=== PATIENT | female | born 1985 | race Caucasian/White ===

== ENCOUNTER 2017-01-23 19:55 | Emergency (ER) | payer BC ==
[2017-01-23 20:13] VITALS: BP 141/82
[2017-01-23] MEDS ORDERED: Meclizine TAB* 12.5 MG PO ONE (20:37)
[2017-01-23] MEDS ORDERED: Amoxicillin/Clavulanate TAB* 875 MG PO ONE (20:39)
[2017-01-23] MEDS ORDERED: Acetaminophen TAB* 325 MG PO ONE (20:40)
--- NOTE | 2017-01-23 22:47 | UC ---
Mik Tolbert Erika, scribed for Genny Ravi MD on 01/23/17 at 2035 . Dizzy HPI HPI Summary: Patient is a 31-year-old female presenting to [facility] with a CC of dizziness. Patient reports that on 01/20/2017, she developed a fever, nasal congestion, a cough, and a slightly sore throat. Patient also reports she has a Hx chronic ear infections, and has been using ciprodex drops in her left ear for the past few days because it felt itchy. She denies ear pain. Patient reports that tonight around 19:00, she developed dizziness, which she describes as feeling like she is underwater. Dizziness is aggravated by standing. Pt denies chest pain. Patient states she did not have the flu shot this year. She had mastoid surgery at age 4, and is followed by Dr. Decker for her frequent ear infections. Patient takes Prozac daily. LNMP early January 2017. FHx lupus, CAD. Patient smokes. - History Of Current Complaint Chief Complaint: UCDizziness Stated Complaint: DIZZY, SOB, COUGH Time Seen by Provider: 01/23/17 20:18 Hx Obtained From: Patient Hx Last Menstrual Period: January Onset/Duration: Gradual Onset, Lasting Hours, Still Present Timing: Constant Severity Currently: Moderate Pain Intensity: 0 Pain Scale Used: 0-10 Numeric Character: Dizzy Aggravating Factor(s): Supine To Erect Alleviating Factor(s): Nothing Associated Signs And Symptoms: Positive: Negative. Negative: Vomiting, Tinnitus , Chest Pain Related History: Similar Episode/Dx as - OM - Allergies/Home Medications Allergies/Adverse Reactions: Allergies Allergy/AdvReac Type Severity Reaction Status Date / Time No Known Allergies Allergy Verified 10/21/16 09:11 PMH/Surg Hx/FS Hx/Imm Hx Endocrine History Of: Denies: Diabetes, Thyroid Disease Cardiovascular History Of: Denies: Cardiac Disorders, Hypertension Respiratory History Of: Reports: Asthma - for a few years now; occasionally uses an inhaler Denies: COPD GI/ History Of: Denies: Ulcer Psychological History Of: Reports: Depression - Surgical History Surgical History: Yes Surgery Procedure, Year, and Place: L ear(mastoid); ; TONSILECTOMY - Family History Known Family History: Positive: Cardiac Disease, Other - lupus - Social History Alcohol Use: None Substance Use Type: None Smoking Status (MU): Heavy Every Day Tobacco Smoker Type: Cigarettes Amount Used/How Often: 1/2 PPD Length of Time of Smoking/Using Tobacco: 20 Years Have You Smoked in the Last Year: Yes When Did the Patient Quit Smoking/Using Tobacco: about a month, uses eCigs Household Exposure Type: Cigarettes - Immunization History Most Recent Influenza Vaccination: Not the Season Review of Systems Constitutional: Fever Skin: Negative Eyes: Negative ENT: Sore Throat, Nasal Discharge, Other - itching left ear Respiratory: Cough Cardiovascular: Negative Gastrointestinal: Negative Genitourinary: Negative Motor: Negative Neurovascular: Negative Musculoskeletal: Negative Neurological: Other - dizziness Psychological: Negative All Other Systems Reviewed And Are Negative: Yes Physical Exam Triage Information Reviewed: Yes Appearance: No Pain Distress, Well-Nourished, Ill-Appearing Vital Signs: Initial Vital Signs Temp 100.2 F 01/23/17 20:01 Pulse 112 01/23/17 20:01 Resp 20 01/23/17 20:01 BP 141/82 01/23/17 20:01 Pulse Ox 97 01/23/17 20:01 Vital Signs Reviewed: Yes Eyes: Positive: Conjunctiva Clear, Other: - EOMI, PERRL ENT: Positive: Hearing grossly normal, Pharynx normal, Other: - Left TM red, swollen, retracted at umbo, with air fluid levels Neck: Positive: Supple, Nontender, No Lymphadenopathy Respiratory: Positive: Lungs clear, Normal breath sounds, No respiratory distress Cardiovascular: Positive: No Murmur, Pulses Normal, Brisk Capillary Refill, Tachycardia - at 112 bpm on triage Musculoskeletal: Positive: Strength Intact, ROM Intact Neurological: Positive: Alert, Muscle Tone Normal Psychological Exam: Normal Skin Exam: Normal Dizzy Course/Dx - Differential Dx/Diagnosis Differential Diagnosis/HQI/PQRI: Benign Paroxysmal Positional Vertigo, Labyrinthitis, Meniere's Disease, Other - OM Provider Diagnoses: 1. Acute otitis media, left ear. 2. Acute vertigo Discharge - Discharge Plan Condition: Stable Disposition: HOME Prescriptions: Amoxicillin/Clavulanate TAB* [Augmentin TAB 875*] 875 mg PO BID #20 tab Meclizine HCl [Meclizine 25] 25 mg PO TID #12 tab Patient Education Materials: Otitis Media (ED), Vertigo (ED) Referrals: Maxime Pereyra MD [Primary Care Provider] - Alberto Decker MD [Medical Doctor] - 2 Days Additional Instructions: You were given Augmentin 875mg and meclizine 25mg and acetaminophen 650mg at 9: 00pm. Return to urgent care if any new or worsening symptoms. The documentation as recorded by the Mik cerrato Erika accurately reflects the service I personally performed and the decisions made by , Genny Ravi MD.
== END 2017-01-23 21:00 | disposition home or self-care (01) ==
LOC: UCEAST 19:55
DX: H66.92 Otitis media, unspecified, left ear (principal); J45.909 Unspecified asthma, uncomplicated; F17.210 Nicotine dependence, cigarettes, uncomplicated; F32.9 Major depressive disorder, single episode, unspecified
CPT/HCPCS: 99212; A9270-GY; G0463

== ENCOUNTER 2017-04-16 07:25 | Emergency (ER) | payer BC ==
[2017-04-16 07:51] VITALS: BP 124/88
--- NOTE | 2017-04-16 08:24 | UC ---
Ear Complaint HPI - HPI Summary HPI Summary: started on Ci[prodex for an ear infection, had all of her teeth pulled-has worsening pain and drainage in left ear, no fevers - History of Current Complaint Chief Complaint: UCEar Stated Complaint: EAR ISSUE Time Seen by Provider: 04/16/17 08:17 Hx Obtained From: Patient Hx Last Menstrual Period: PCO - ABOUT 1-2 MONTHS AGO ?: No Onset/Duration: Gradual Onset, Lasting Days, Still Present Severity Initially: Moderate Severity Currently: Moderate Pain Intensity: 5 Pain Scale Used: 0-10 Numeric Aggravating Factors: Nothing Alleviating Factors: Nothing Associated Signs/Symptoms: Positive: Discharge Related History: Smoking, Prior ENT Surgery - Allergies/Home Medications Allergies/Adverse Reactions: Allergies Allergy/AdvReac Type Severity Reaction Status Date / Time No Known Allergies Allergy Verified 10/21/16 09:11 PMH/Surg Hx/FS Hx/Imm Hx Previously Healthy: No - PCOS - Surgical History Surgical History: Yes Surgery Procedure, Year, and Place: L ear(mastoid); ; TONSILECTOMY - Family History Known Family History: Positive: None, Cardiac Disease, Other - lupus Negative: Hypertension, Diabetes, Respiratory Disease, Blood Disorder - Social History Occupation: Employed Full-time Lives: With Family Alcohol Use: None Substance Use Type: Prescribed Smoking Status (MU): Heavy Every Day Tobacco Smoker Type: Cigarettes Amount Used/How Often: 1/2 PPD Length of Time of Smoking/Using Tobacco: 20 Years Have You Smoked in the Last Year: Yes When Did the Patient Quit Smoking/Using Tobacco: about a month, uses eCigs Household Exposure Type: Cigarettes Cessation Counseling: Counseled 3+Min - 10 Min - Immunization History Most Recent Influenza Vaccination: Not the Season Review of Systems Constitutional: Negative Skin: Negative Eyes: Negative ENT: Ear Ache - L Respiratory: Negative Cardiovascular: Negative Gastrointestinal: Negative Genitourinary: Negative Motor: Negative Neurovascular: Negative Musculoskeletal: Negative Neurological: Negative Psychological: Negative All Other Systems Reviewed And Are Negative: Yes Physical Exam Triage Information Reviewed: Yes Appearance: No Pain Distress, Well-Nourished, Pain Distress Vital Signs: Initial Vital Signs Temp 98.5 F 04/16/17 07:45 Pulse 94 04/16/17 07:45 Resp 16 04/16/17 07:45 BP 124/88 04/16/17 07:45 Pulse Ox 99 04/16/17 07:45 Vital Signs Reviewed: Yes Eye Exam: Normal Eyes: Positive: Conjunctiva Clear ENT Exam: Normal ENT: Positive: Normal ENT inspection, Hearing grossly normal, Pharynx normal, TM dull - scarred TM. Negative: Nasal congestion, Nasal drainage, Tonsillar swelling, Tonsillar exudate, Trismus, Muffled/hoarse voice Dental Exam: Normal Neck exam: Normal Neck: Positive: Supple, Nontender, No Lymphadenopathy Respiratory Exam: Normal Respiratory: Positive: Chest non-tender, Lungs clear, Normal breath sounds, No respiratory distress, No accessory muscle use Cardiovascular Exam: Normal Cardiovascular: Positive: RRR, No Murmur, Pulses Normal, Brisk Capillary Refill Musculoskeletal Exam: Normal Musculoskeletal: Positive: Strength Intact, ROM Intact, No Edema Neurological Exam: Normal Neurological: Positive: Alert, Muscle Tone Normal Psychological Exam: Normal Skin Exam: Normal Ear Complaint Course/Dx - Course Course Of Treatment: continue Ciprodex add Augmentin nicotine cesation information, follow with ENT this week - Differential Dx/Diagnosis Differential Diagnosis/HQI/PQRI: Otitis Externa, Otitis Media, Trauma, URI Provider Diagnoses: Left Otitis media, nicotine dependent Discharge - Discharge Plan Condition: Stable Disposition: HOME Prescriptions: Amoxicillin/Clavulanate TAB* [Augmentin TAB 875*] 875 mg PO BID #20 tab Patient Education Materials: How to Stop Smoking (ED), Otitis Media (ED) Referrals: [facility] [Provider Group] - 5 Days Maxime Pereyra MD [Primary Care Provider] -
== END 2017-04-16 08:45 | disposition home or self-care (01) ==
LOC: UCEAST 07:25
DX: H66.92 Otitis media, unspecified, left ear (principal); E28.2 Polycystic ovarian syndrome; F17.210 Nicotine dependence, cigarettes, uncomplicated; Z71.6 Tobacco abuse counseling
CPT/HCPCS: 99212; G0463

== ENCOUNTER 2017-08-10 21:29 | Emergency (ER) | payer BC ==
[2017-08-10 21:37] VITALS: BP 130/80
--- NOTE | 2017-08-11 00:57 | UC ---
Skin Complaint HPI - HPI Summary HPI Summary: 32 YEAR OLD FEMALE PRESENTS WITH VERY LARGE ABSCESS OF RIGHT BUTTOCK. SHE IS IN A GREAT DEAL OF PAIN AND I WILL SEND HER TO THE ER. - History of Current Complaint Chief Complaint: UCSkin Time Seen by Provider: 08/10/17 21:49 Stated Complaint: SOFT TISSUE COMPLAINT Hx Obtained From: Patient Hx Last Menstrual Period: pcos Onset/Duration: Sudden Onset Skin Exposure Onset/Duration: Days Ago Onset Severity: Severe Current Severity: Severe Pain Intensity: 9 Pain Scale Used: 0-10 Numeric - 10 - Allergy/Home Medications Allergies/Adverse Reactions: Allergies Allergy/AdvReac Type Severity Reaction Status Date / Time No Known Allergies Allergy Verified 08/10/17 22:26 Home Medications: Home Medications Cephalexin CAP* [Keflex 500 CAP*] 500 mg PO TID 08/10/17 [History Confirmed 02/21] Review of Systems Constitutional: Negative Skin: Other - ABSCESS RIGHT BUTTOCK Eyes: Negative ENT: Negative Respiratory: Negative Cardiovascular: Negative Gastrointestinal: Negative Genitourinary: Negative Motor: Negative Neurovascular: Negative Musculoskeletal: Negative Neurological: Negative Psychological: Negative All Other Systems Reviewed And Are Negative: Yes PMH/Surg Hx/FS Hx/Imm Hx Previously Healthy: Yes - Surgical History Surgical History: None Surgery Procedure, Year, and Place: L ear(mastoid); ; TONSILECTOMY - Family History Known Family History: Positive: None, Cardiac Disease, Other - lupus Negative: Hypertension, Diabetes, Respiratory Disease, Blood Disorder - Social History Alcohol Use: None Substance Use Type: None, Prescribed Smoking Status (MU): Heavy Every Day Tobacco Smoker Type: Cigarettes Amount Used/How Often: 1/2 PPD Length of Time of Smoking/Using Tobacco: 20 Years Have You Smoked in the Last Year: Yes When Did the Patient Quit Smoking/Using Tobacco: about a month, uses eCigs Household Exposure Type: Cigarettes - Immunization History Most Recent Influenza Vaccination: Not the 2016/2016 Season Physical Exam Triage Information Reviewed: Yes Vital Signs: Initial Vital Signs Temp 37.1 C 08/10/17 21:35 Pulse 120 08/10/17 21:35 Resp 20 08/10/17 21:35 BP 130/80 08/10/17 21:35 Pulse Ox 100 08/10/17 21:35 Vital Signs Reviewed: Yes Eye Exam: Normal ENT Exam: Normal Dental Exam: Normal Neck exam: Normal Neck: Positive: 1 Respiratory Exam: Normal Cardiovascular Exam: Normal Abdominal Exam: Normal Musculoskeletal Exam: Normal Neurological Exam: Normal Psychological Exam: Normal Skin: Positive: Other - RIGHT GLUTEAL ABSCESS Course/Dx - Diagnoses Provider Diagnoses: RIGHT GLUTEAL ABSCESS Discharge - Discharge Plan Condition: Stable Disposition: HOME Patient Education Materials: Abscess (ED) Referrals: Maxime Pereyra MD [Primary Care Provider] - Additional Instructions: PATIENT SUGGESTED TO GO TO THE ER FOR LARGE AND VERY PAINFUL RIGHT GLUTEAL ABSCESS.
== END 2017-08-10 21:50 | disposition home or self-care (01) ==
LOC: UCEAST 21:29
DX: L02.31 Cutaneous abscess of buttock (principal); F17.210 Nicotine dependence, cigarettes, uncomplicated
CPT/HCPCS: 99212; G0463

== ENCOUNTER 2017-08-10 22:16 | Emergency (ER) | payer BC ==
[2017-08-11] MEDS ORDERED: NS 0.9% 1000 ML* 1,000 ML IV ONE (00:29)
[2017-08-11 01:24] LABS: Hematocrit 43 % (35-47); Hemoglobin 14.6 g/dl (12.0-16.0); Mean Corpuscular HGB Conc 34 g/dl (31-36); Mean Corpuscular Hemoglobin 30 pg (27-31); Mean Corpuscular Volume 88 fL (80-97); Mean Platelet Volume 9 um3 (7.4-10.4); Red Blood Count 4.82 10^6/ul (4.0-5.4); Red Cell Distribution Width 13 % (10.5-15); White Blood Count 15.6 10^3/ul (3.5-10.8)
[2017-08-11 01:25] LABS: Add Diff/Slide Review? Slide Review Added; Comments Flag Yes
[2017-08-11 01:40] LABS: Albumin 4.2 g/dL (3.2-5.2); BUN/Creatinine Ratio 13.3 (8-20); Calcium 9.5 mg/dL (8.6-10.3); EGFR African American 101.2 (>60); EGFR Non-African American 78.7 (>60); Globulin 3.3 g/dL (2-4); Potassium 3.7 mmol/L (3.5-5.0); Total Bilirubin 0.6 mg/dL (0.2-1.0); Total Protein 7.5 g/dL (6.4-8.9)
[2017-08-11] MEDS ORDERED: Sulfamethox/Trimethoprim DS 800/160* TAB PO ONE (02:20)
[2017-08-11] MEDS ORDERED: Ketorolac INJ* 30 MG/ML 1 ML VIAL IV PUSH ONE (02:21)
--- NOTE | 2017-08-11 02:24 | ED ---
Skin Complaint - HPI Summary HPI Summary: 32 female presents to ED with complaints of left buttock that began Tuesday as a small, "zit" that has worsened since. Patient states she was seen at PCP and given Keflex on Tuesday, has taken two doses. Has not had any relief and redness, tenderness and swelling has actually increased greatly. Patient denies drainage and fever. Has not taken anything for pain. Denies any history of MRSA. No other PMHx and no other complaints. Touch and sitting makes it worse. Denies red streaks. Has been applying warm compresses and tried to attempt to pop it however did not have any success. Denies fever/chills. - History of Current Complaint Chief Complaint: EDRashSkinAbscess Time Seen by Provider: 08/11/17 00:26 Stated Complaint: ABSCESS ON BUTTOCKS Hx Obtained From: Patient Hx Last Menstrual Period: pcos Onset/Duration: Started Days Ago, Still Present, Worse Since Skin Exposure Onset/Duration: Days Ago Timing: Constant Onset Severity: Moderate Current Severity: Severe Pain Intensity: 7 Pain Scale Used: 0-10 Numeric Skin Location: Discrete - left buttock Character: Swelling, Redness, Raised, Painful Aggravating Symptom(s): Touch Alleviating Symptom(s): Nothing - Allergy/Home Medications Allergies/Adverse Reactions: Allergies Allergy/AdvReac Type Severity Reaction Status Date / Time No Known Allergies Allergy Verified 08/10/17 22:26 PMH/Surg Hx/FS Hx/Imm Hx Endocrine/Hematology History: Denies: Hx Diabetes, Hx Thyroid Disease Cardiovascular History: Denies: Hx Hypertension Respiratory History: Reports: Hx Asthma - for a few years now; occasionally uses an inhaler Denies: Hx Chronic Obstructive Pulmonary Disease (COPD) GI History: Denies: Hx Ulcer Psychiatric History: Reports: Hx Depression - Surgical History Surgery Procedure, Year, and Place: L ear(mastoid); ; TONSILECTOMY - Immunization History Date of Tetanus Vaccine: Unknown Infectious Disease History: No Infectious Disease History: Denies: Hx Clostridium Difficile, Hx Hepatitis, Hx Human Immunodeficiency Virus (HIV), Hx of Known/Suspected MRSA, Hx Shingles, Hx Tuberculosis, Hx Known/ Suspected VRE, Hx Known/Suspected VRSA, History Other Infectious Disease, Traveled Outside the [place] in Last 30 Days - Family History Known Family History: Positive: None, Cardiac Disease, Other - lupus Negative: Hypertension, Diabetes, Respiratory Disease, Blood Disorder - Social History Alcohol Use: Rare Substance Use Type: Reports: None, Prescribed Hx Tobacco Use: Yes Smoking Status (MU): Heavy Every Day Tobacco Smoker Type: Cigarettes Amount Used/How Often: 1/2 PPD Length of Time of Smoking/Using Tobacco: 20 Years Have You Smoked in the Last Year: Yes Review of Systems Constitutional: Negative Cardiovascular: Negative Respiratory: Negative Musculoskeletal: Negative Positive: Other - red, swelling, tender left buttock Neurological: Negative All Other Systems Reviewed And Are Negative: Yes Physical Exam Triage Information Reviewed: Yes Vital Signs On Initial Exam: Initial Vitals Temp Pulse Resp BP Pulse Ox 99.0 F 135 20 123/98 99 08/10/17 22:20 08/10/17 22:20 08/10/17 22:20 08/10/17 22:20 08/10/17 22:20 tachycardia noted, patient anxious and in pain. improved after fluids and throughout visit. asymptomatic, no concern at this time. afebrile Vital Signs Reviewed: Yes Appearance: Positive: Well-Appearing, Well-Nourished, Pain Distress - moderate with touch and movement of left buttock Skin: Positive: Warm, Skin Color Reflects Adequate Perfusion, Dry, Erythema @ - at left buttock, superficial, no flucutance, very indurated and firm. approximately 8cm diameter, circular. no red streaking. appears to be a cellulitis. no identified pocket identified. small scabbed over opening without drainage, superficial. tender to touch. warm to touch. rest of skin exam normal.. Negative: Cold, Numb, Cyanosis @, Pale Head/Face: Positive: Normal Head/Face Inspection Eyes: Positive: Conjunctiva Clear ENT: Positive: Hearing grossly normal Neck: Positive: Supple, Nontender, No Lymphadenopathy Respiratory/Lung Sounds: Positive: Clear to Auscultation, Breath Sounds Present. Negative: Rales Cardiovascular: Positive: Normal, RRR, Pulses are Symmetrical in both Upper and Lower Extremities, Tachycardia - patient anxious and in pain Musculoskeletal: Positive: Normal, Strength/ROM Intact Neurological: Positive: Normal, Sensory/Motor Intact, Alert, Oriented to Person Place, Time, Normal Gait - [place] Coma Scale Coma Scale Total: 15 Procedures - Procedure Summary Procedure Summary: attempted to drain first using 18gauge needle, however was unsuccessful no purulent drainage collected, only blood. therefore no ID was preformed. does not appear ready. Diagnostics - Vital Signs Vital Signs Temp Pulse Resp BP Pulse Ox 08/10/17 22:20 99.0 F 135 20 123/98 99 - Laboratory Lab Results: Lab Results 08/11/17 08/11/17 08/11/17 Range/Units 01:08 01:08 01:08 WBC 15.6 H (3.5-10.8) 10^3/ul RBC 4.82 (4.0-5.4) 10^6/ul Hgb 14.6 (12.0-16.0) g/dl Hct 43 (35-47) % MCV 88 (80-97) fL MCH 30 (27-31) pg MCHC 34 (31-36) g/dl RDW 13 (10.5-15) % Plt Count 225 (150-450) 10^3/ul MPV 9 (7.4-10.4) um3 Neut % (Auto) 73.4 (38-83) % Lymph % (Auto) 13.0 L (25-47) % [place] % (Auto) 11.6 H (1-9) % Eos % (Auto) 1.5 (0-6) % Baso % (Auto) 0.5 (0-2) % Absolute Neuts (auto) 11.4 H (1.5-7.7) 10^3/ul Absolute Lymphs (auto) 2.0 (1.0-4.8) 10^3/ul Absolute Monos (auto) 1.8 H (0-0.8) 10^3/ul Absolute Eos (auto) 0.2 (0-0.6) 10^3/ul Absolute Basos (auto) 0.1 (0-0.2) 10^3/ul Absolute Nucleated RBC 0 10^3/ul Nucleated RBC % 0 Sodium 133 (133-145) mmol/L Potassium 3.7 (3.5-5.0) mmol/L Chloride 99 L (101-111) mmol/L Carbon Dioxide 24 (22-32) mmol/L Anion Gap 10 (2-11) mmol/L BUN 11 (6-24) mg/dL Creatinine 0.83 (0.51-0.95) mg/dL Est GFR ( Amer) 101.2 (>60) Est GFR (Non-Af Amer) 78.7 (>60) BUN/Creatinine Ratio 13.3 (8-20) Glucose 102 H (70-100) mg/dL Lactic Acid 0.7 (0.5-2.0) mmol/L Calcium 9.5 (8.6-10.3) mg/dL Total Bilirubin 0.60 (0.2-1.0) mg/dL AST 20 (13-39) U/L ALT 27 (7-52) U/L Alkaline Phosphatase 78 (34-104) U/L Total Protein 7.5 (6.4-8.9) g/dL Albumin 4.2 (3.2-5.2) g/dL Globulin 3.3 (2-4) g/dL Albumin/Globulin Ratio 1.3 (1-3) Result Diagrams: 08/11/17 01:08 08/11/17 01:08 Lab Statement: Any lab studies that have been ordered have been reviewed, and results considered in the medical decision making process. Course/Dx - Course Course Of Treatment: labs obtained. WBC elevated. no septic, negative lactic and afebrile. given fluids while in ED. bactrim and toradol. no drainage able to culture. due to PE findings and attempt to drain with needle without success , will treat with additional antibiotic, bactrim, pain management and warm compresses. no I&D attempted as it was unnecessary at this time. close follow up PCP. may need to be drained in future. Aware of worsening signs and symptoms to watch out for. If occur aware to return. - Differential Diagnoses - Skin Complaint Differential Diagnoses: Abscess, Cellulitis, Local Allergic Reaction, MRSA - Diagnoses Provider Diagnoses: Cellulitis of buttock, left - Physician Notifications Discussed Care Of Patient With: Dr Garber Discharge - Discharge Plan Condition: Stable Disposition: HOME Prescriptions: Sulfamethox/Trimethoprim DS* [Bactrim DS 800/160 TAB*] 1 tab PO BID #20 tab Patient Education Materials: Cellulitis (ED), Abscess (ED), Warm Compress or Soak (ED) Referrals: Maxime Pereyra MD [Primary Care Provider] - Additional Instructions: Continue warm compresses. Keep clean and dry. Take ibuprofen and already prescribed vicodin as needed for pain. Take both antibiotics as prescribed, do not miss a dose. Give it 24-48 hours for improvement. IF symptoms worsen, as discussed, increasing redness, fever, generalized feeling of illness, or drainage, please seek medical attention promptly. Follow up with PCP. This may need to be drained in the future.
[2017-08-11 03:18] VITALS: BP 128/89
== END 2017-08-11 02:35 | disposition home or self-care (01) ==
LOC: ED 22:16
DX: L03.317 Cellulitis of buttock (principal)
CPT/HCPCS: 36415; 80053; 83605; 85025; 99282; A9270-GY; J1885

== ENCOUNTER 2017-11-01 18:02 | Emergency (ER) | payer BC ==
--- OUTSIDE RECORDS SUMMARY | 2017-11-01 18:08 | XMS REPORT ---
:1985 External Reference #:[id number] Author Organization [facility] 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 [address] [place] [address] Commercial Effective: 2012 Policy Number: [employer] [facility] Jennifer Thomas [id number] Care Expires: 2013 PayID: [id number] [place] [address] Medigap Part B Effective: Policy Number: Medicaid/[facility] Jennifer Smith William 2011 [id number] Systems Expires: 2013 PayID: [id number] [address] [place] [address] Problems Date Description Provider Status Onset: 01/01/2013 Dysfunction of eustachian tube Maxime Pereyra M.D. Active Onset: 11/11/2014 Allergic rhinitis Maxime Pereyra M.D. Active Onset: 11/11/2014 Tobacco user Maxime Pereyra M.D. 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 Family History Date Family Member(s) Problem(s) Comments Children 1 Siblings 2 Social History Type Date Description Comments Marital Status Legal Status: Never ETOH Use Denies alcohol use Smoking Patient is a current smoker, smokes every day 1 pack a day Daily Caffeine Consumes on average 1 cup of regular coffee per day Daily Caffeine Consumes on average 3 sodas per day Allergies, Adverse Reactions, Alerts Date Description Reaction Status Severity Comments 08/23/2012 NKDA active Medications Medication Date Status Form Strength Qnty SIG Indications Ordering Provider Ciprodex 10/24/ Active Suspension 0.3-0.1% 15ml 2 drops H60.313 Roddy, 2016 both ears Ahmad M., three M.D. times a day X 5-7 Days Hydrocodone-A 09/19/ Active Tablets 5-325mg 120tab 1-2 tab M54.2 Roddy, cetaminophen 2016 s by mouth Ahmad M., every 4 M.D. hours as needed Amphetamine-D 08/08/ Active Tablets 10mg 30tabs tab one F90.1 Roddy, extroamphetam 2017 by mouth Ahmarupesh Jefferson, ine every M.D. noon Amphetamine-D 07/18/ Active Caps ER 24HR 10mg 30caps 1 tab by F90.1 Roddy, extroamphet 2017 mouth Ahmad M., ER every M.D. morning Cephalexin 08/08/ Hx Capsules 500mg 30caps tab one L03.818 Roddy, 2016 - by mouth Ahmad M., 08/18/ three M.D. 2017 times a day Ciprodex 04/13/ Hx Suspension 0.3-0.1% 10ml 3 drops H66.92 Roddy, 2016 - left ear Ahmad M., 05/17/ three M.D. 2017 times a day Bactrim DS 11/15/ Hx Tablets 800-160mg 30tabs 1 by H66.92 Roddy, 2016 - mouth Ahmad M., 11/30/ twice a M.D. 2016 day Sulfamethoxaz 09/13/ Hx Tablets 800-160mg 20tabs tab one H66.93 Roddy, ole/Trimethop 2015 - by mouth Ahmad M., rim DS 09/23/ twice a M.D. 2015 day Ceftin 08/04/ Hx Tablets 500mg 28tabs 1 by H66.93 [facility], 2015 - mouth Ahrio Jefferson, 08/18/ twice a M.D. 2015 day J02.9 J01.40 Diflucan 08/04/2016 - Hx Tablets 150mg 2tabs tab one now H66.93 [facility], 06/17/2017 may repeat Maxime Jefferson, in 5 days M.D. Fluoxetine HCL 07/05/2016 - Hx Capsules 20mg 60caps take Two F33.9 [facility], 06/17/2017 capsule by Maxime Jefferson, mouth every M.D. in the morning M54.2 Amoxicillin 04/21/2016 - Hx Suspension 400mg/5ML 150cc teaspoon 1 J02.9 [facility], 05/01/2016 Rec by mouth Ahrio three M. MElizaDEliza times a day until finished Ciprodex 04/21/2016 - Hx Suspension 0.3-0.1% 15ml 2 drops H66.92 [facility], 04/26/2016 both ears Ahrio three M. MElizaDEliza times a day Wellbutrin XL 03/26/2016 - Hx Tablets ER 150mg 30tabs 1 by mouth F17.210 [facility], 07/05/2016 24HR every day Maxime Jefferson M.D. M54.2 Naprosyn 02/26/2016 - Hx Tablets 500mg 1 tab by mouth M25.562 [facility], mad 11/15/2016 twice a day River Jefferson H92.03 Prednisone 11/28/2015 - Hx Tablets 20mg 18tabs 3 tab by 5.562 Roddy, 12/07/2015 mouth Maxime Jefferson, daily 3 M.D. days, then 2 tab daily x 3 d , then 1 tab daily 3d Hydrocodone-Acet 11/28/2015 - Hx Tablets 5-325mg 120tabs 1-2 tab by 5.562 [facility], aminophen 08/08/2017 mouth Maxime Jefferson, every 4 M.D. hours as needed Amoxicillin 11/28/2015 - Hx Tablets 500mg 40tabs 2 by mouth H66.93 [facility], 12/07/2015 twice a Ahmarupesh Jefferson, day M.DEliza Levofloxacin 11/11/2014 - Hx Tablets 500mg 10tabs 1 by mouth 382.9 Roddy, 11/21/2014 every day Maxime Jefferson M.D. Antipyrine-Benzo 11/11/2014 - Hx Solution 5.4-1.4% 15ml 3 drops 388.70 Roddy abi 11/21/2014 right ear Maxime Jefferson, every 4 M.D. hours as needed Clindamycin HCL 06/21/2014 - Hx Capsules 300mg 30caps take 1 528.9 Kvng 11/10/2014 tablet by Katy, mouth [employer] three times a day for 10 days Oxycodone-Acetam 06/21/2014 - Hx Tablets 5-325mg 140tabs 1 tab by 616.0 Kvng inophen 11/10/2014 mouth Katy, every 4 [employer] hours as needed 723.1 Ibuprofen 01/15/2014 - Hx Tablets 800mg 90tabs 1 tab by M25.562 Maxime Pereyra 02/26/2016 mouth every M. MAnjali 6-8 hours with food as needed for pain H92.03 Cyclobenzaprine HCL 01/15/2014 - Hx Tablets 10mg 90tabs 1 tab by 724.2 Kvng, 11/10/2014 mouth Katy, [employer] three times a day as needed for muscle spasms 723.1 Medrol Dosepak 01/15/2014 - Hx Tablets 4mg 1Pack take as 724.2 Roddy, 01/20/2014 directed Maxime Jefferson M.D. No Active 11/12/2013 - Hx Unknown Medications 11/12/2013 Amoxicillin/Cla 11/12/2013 - Hx Tablets 875-12 20tabs 1 po bid 461.9 Roddy vulanate 11/22/2013 5mg Maxime Jefferson Potassium LiDEliza Prednisone 11/12/2013 - Hx Tablets 20mg 20tabs 2 tab by 461.9 Roddy, 11/26/2013 mouth daily Maxime Jefferson, 4 M.DEliza days,30x3d, 20x2d,10x7d Benzonatate 11/12/2013 - Hx Capsules 100mg 30caps 1 capsule 466.0 Roddy , 11/22/2013 po tid prn Maxime Jefferson for cough Sarah.Bhaskar Mucinex Maximum 11/12/2013 - Hx Tablets ER 1200mg 30tabs 1 po bid 461.9 Roddy, Strength 11/17/2013 12HR Maxime Jefferson M.D. Chantix 04/18/2013 - Hx Tablets 0.5mg 1Pack use as 305.1 Roddy, Starting Month 06/06/2013 X 11 directed Chad Turk & River 1 mg X 42 Ciprodex 01/01/2013 - Hx Suspension 0.3-0. 10ml 3 drops 381.04 Roddy, 01/08/2013 1% left ear Maxime Jefferson, three times M.D. a day Wellbutrin XL 01/01/2013 - Hx Tablets ER 150mg 30tabs 1 by mouth 305.1 Roddy, 04/18/2013 24HR every day Maxime Jefferson M.D. Cipro HC 09/21/2012 - Hx Suspension 0.2-1% 30ml otic 1-2 388.70 Roddy, 09/28/2012 gtts Both Maxime Jefferson ear tid River Amoxicillin/Pot 09/21/2012 - Hx Tablets 500-12 20tabs 1 po bid 388.70 Roddy, assium 12/18/2012 5mg x10 days Maxime Jefferosn Clavulanate Sarah.DEliza Cipro 08/23/2012 - Hx Tablets 500mg 20tabs 1 po bid 388.70 Roddy, 09/21/2012 x10 days Maxime Jefferson M.D. Medications Administered in Office Medication Date Status Form Strength Qnty SIG Indications Ordering Provider Intradermal Administered Injection Rj Phelps 012 rlie [employer] Immunizations CPT Code Status Date Vaccine Lot # [id number] Given 08/17/2017 Varicella Vaccine [id number] Given 08/23/2012 Flu Vaccine [id number] Vital Signs Date Vital Result Comment 10/24/2017 BP Systolic 126 mmHg BP Diastolic 84 mmHg Height 62 inches 5'2" Weight 193.00 lb BMI (Body Mass Index) 35.3 kg/m2 Heart Rate 114 /min Body Temperature 97.0 F Respiratory Rate 18 /min 09/19/2017 BP Systolic 124 mmHg BP Diastolic 68 mmHg Height 62 inches 5'2" Weight 195.00 lb BMI (Body Mass Index) 35.7 kg/m2 Heart Rate 107 /min Respiratory Rate 18 /min 09/07/2017 BP Systolic 126 mmHg BP Diastolic 62 mmHg Height 62 inches 5'2" Weight 196.00 lb BMI (Body Mass Index) 35.8 kg/m2 Heart Rate 76 /min Respiratory Rate 16 /min 08/17/2017 BP Systolic 118 mmHg BP Diastolic 68 mmHg Height 62 inches 5'2" Weight 191.00 lb BMI (Body Mass Index) 34.9 kg/m2 Heart Rate 135 /min Respiratory Rate 18 /min 08/08/2017 BP Systolic 110 mmHg BP Diastolic 78 mmHg Height 62 inches 5'2" Weight 197.00 lb BMI (Body Mass Index) 36.0 kg/m2 Heart Rate 76 /min Respiratory Rate 18 /min 07/18/2017 BP Systolic 126 mmHg BP Diastolic 88 mmHg Height 62 inches 5'2" Weight 200.00 lb BMI (Body Mass Index) 36.6 kg/m2 Heart Rate 81 /min Respiratory Rate 18 /min 04/13/2017 BP Systolic 122 mmHg BP Diastolic 70 mmHg Height 62 inches 5'2" Weight 209.00 lb BMI (Body Mass Index) 38.2 kg/m2 Heart Rate 93 /min Respiratory Rate 16 /min 11/15/2016 BP Systolic 128 mmHg BP Diastolic 78 mmHg Height 62 inches 5'2" Weight 201.00 lb BMI (Body Mass Index) 36.8 kg/m2 Heart Rate 108 /min Respiratory Rate 20 /min 09/13/2016 BP Systolic 118 mmHg BP Diastolic 82 mmHg Height 62 inches 5'2" Weight 198.00 lb BMI (Body Mass Index) 36.2 kg/m2 Heart Rate 87 /min Respiratory Rate 16 /min 08/04/2016 BP Systolic 126 mmHg BP Diastolic 80 mmHg Height 62 inches 5'2" Weight 191.00 lb BMI (Body Mass Index) 34.9 kg/m2 Heart Rate 81 /min Respiratory Rate 20 /min 07/05/2016 BP Systolic 128 mmHg BP Diastolic 64 mmHg Height 62 inches 5'2" Weight 192.00 lb BMI (Body Mass Index) 35.1 kg/m2 Heart Rate 92 /min Respiratory Rate 20 /min 05/26/2016 BP Systolic 118 mmHg BP Diastolic 76 mmHg Height 62 inches 5'2" Weight 187.00 lb BMI (Body Mass Index) 34.2 kg/m2 Heart Rate 84 /min Respiratory Rate 20 /min 04/26/2016 BP Systolic 122 mmHg BP Diastolic 88 mmHg Height 62 inches 5'2" Weight 186.00 lb BMI (Body Mass Index) 34.0 kg/m2 Heart Rate 74 /min Respiratory Rate 18 /min 04/21/2016 BP Systolic 124 mmHg BP Diastolic 76 mmHg Height 62 inches 5'2" Weight 182.00 lb BMI (Body Mass Index) 33.3 kg/m2 Heart Rate 74 /min Body Temperature 97.5 F Respiratory Rate 17 /min 03/26/2016 BP Systolic 122 mmHg BP Diastolic 76 mmHg Height 62 inches 5'2" Weight 187.00 lb BMI (Body Mass Index) 34.2 kg/m2 Heart Rate 78 /min Respiratory Rate 18 /min 02/26/2016 BP Systolic 135 mmHg BP Diastolic 93 mmHg Height 62 inches 5'2" Weight 189.00 lb BMI (Body Mass Index) 34.6 kg/m2 Heart Rate 88 /min Respiratory Rate 18 /min 01/23/2016 BP Systolic 126 mmHg BP Diastolic 73 mmHg Height 62 inches 5'2" Weight 193.00 lb BMI (Body Mass Index) 35.3 kg/m2 Heart Rate 93 /min Respiratory Rate 18 /min 01/02/2016 BP Systolic 123 mmHg BP Diastolic 84 mmHg Height 62 inches 5'2" Weight 193.00 lb BMI (Body Mass Index) 35.3 kg/m2 Heart Rate 89 /min Respiratory Rate 18 /min 12/11/2015 BP Systolic 129 mmHg BP Diastolic 89 mmHg Height 62 inches 5'2" Weight 183.00 lb BMI (Body Mass Index) 33.5 kg/m2 Heart Rate 86 /min Respiratory Rate 18 /min 11/28/2015 BP Systolic 128 mmHg BP Diastolic 84 mmHg Height 62 inches 5'2" Weight 183.00 lb BMI (Body Mass Index) 33.5 kg/m2 Heart Rate 100 /min Body Temperature 97.2 F Respiratory Rate 18 /min 11/11/2014 BP Systolic 133 mmHg BP Diastolic 95 mmHg Height 62 inches 5'2" Weight 196.00 lb BMI (Body Mass Index) 35.8 kg/m2 Heart Rate 94 /min Body Temperature 97.4 F Respiratory Rate 14 /min 06/27/2014 BP Systolic 128 mmHg BP Diastolic 94 mmHg Height 62 inches 5'2" Weight 191.00 lb BMI (Body Mass Index) 34.9 kg/m2 Heart Rate 98 /min Respiratory Rate 18 /min 06/21/2014 BP Systolic 153 mmHg BP Diastolic 92 mmHg Height 62 inches 5'2" Weight 194.00 lb BMI (Body Mass Index) 35.5 kg/m2 Heart Rate 98 /min Body Temperature 97.6 F Respiratory Rate 18 /min 01/15/2014 BP Systolic 130 mmHg BP Diastolic 87 mmHg Height 62 inches 5'2" Weight 195.00 lb BMI (Body Mass Index) 35.7 kg/m2 Heart Rate 86 /min Respiratory Rate 20 /min 11/12/2013 BP Systolic 112 mmHg BP Diastolic 86 mmHg Height 62 inches 5'2" Weight 192.00 lb BMI (Body Mass Index) 35.1 kg/m2 Heart Rate 107 /min Body Temperature 97.8 F Respiratory Rate 20 /min 04/18/2013 BP Systolic 122 mmHg BP Diastolic 80 mmHg Height 62 inches 5'2" Weight 193.00 lb BMI (Body Mass Index) 35.3 kg/m2 Heart Rate 105 /min Respiratory Rate 20 /min 01/01/2013 BP Systolic 128 mmHg BP Diastolic 90 mmHg Height 62 inches 5'2" Weight 191.00 lb BMI (Body Mass Index) 34.9 kg/m2 Heart Rate 103 /min Body Temperature 97.3 F Respiratory Rate 18 /min 09/21/2012 BP Systolic 110 mmHg BP Diastolic 80 mmHg Height 62 inches 5'2" Weight 178.00 lb BMI (Body Mass Index) 32.6 kg/m2 Heart Rate 120 /min Respiratory Rate 28 /min 08/23/2012 BP Systolic 120 mmHg BP Diastolic 92 mmHg Height 62 inches 5'2" Weight 178.00 lb BMI (Body Mass Index) 32.6 kg/m2 Heart Rate 64 /min Respiratory Rate 20 /min Results Test Date Test Result H/L Range Note Urine Drug [place] 10/24/2017 [id number] <pending> Ethyl Glucuronide <pending> Laboratory test finding 08/11/2017 Lactic Acid 0.7 mmol/L 0.5-2.0 1 Comp Metabolic Panel 08/11/2017 Sodium 133 mmol/L 133-145 Potassium 3.7 mmol/L 3.5-5.0 Chloride 99 mmol/L Low 101-111 Co2 Carbon Dioxide 24 mmol/L 22-32 Anion Gap 10 mmol/L 2-11 Glucose 102 mg/dL High 70-100 Blood Urea Nitrogen 11 mg/dL 6-24 Creatinine 0.83 mg/dL 0.51-0.95 BUN/Creatinine Ratio 13.3 8-20 Calcium 9.5 mg/dL 8.6-10.3 Total Protein 7.5 g/dL 6.4-8.9 Albumin 4.2 g/dL 3.2-5.2 Globulin 3.3 g/dL 2-4 Albumin/Globulin Ratio 1.3 1-3 Total Bilirubin 0.60 mg/dL 0.2-1.0 Alkaline Phosphatase 78 U/L 34-104 Alt 27 U/L 7-52 Ast 20 U/L 13-39 Egfr Non- 78.7 >60 Egfr 101.2 >60 2 CBC Auto Diff 08/11/2017 White Blood Count 15.6 10^3/uL High 3.5-10.8 Red Blood Count 4.82 10^6/uL 4.0-5.4 Hemoglobin 14.6 g/dL 12.0-16.0 Hematocrit 43 % 35-47 Mean Corpuscular Volume 88 fL 80-97 Mean Corpuscular Hemoglobin 30 pg 27-31 Mean Corpuscular HGB Conc 34 g/dL 31-36 Red Cell Distribution Width 13 % 10.5-15 Platelet Count 225 10^3/uL 150-450 Mean Platelet Volume 9 um3 7.4-10.4 Abs Neutrophils 11.4 10^3/uL High 1.5-7.7 Abs Lymphocytes 2.0 10^3/uL 1.0-4.8 Abs Monocytes 1.8 10^3/uL High 0-0.8 Abs Eosinophils 0.2 10^3/uL 0-0.6 Abs Basophils 0.1 10^3/uL 0-0.2 Abs Nucleated RBC 0 10^3/uL Granulocyte % 73.4 % 38-83 Lymphocyte % 13.0 % Low 25-47 Monocyte % 11.6 % High 1-9 Eosinophil % 1.5 % 0-6 Basophil % 0.5 % 0-2 Nucleated Red Blood Cells % 0 Laboratory test finding 04/20/2016 Rapid Strep Molecular Negative Negative 3 CBC Auto Diff 02/26/2016 White Blood Count 6.7 10^3/uL 3.5-10.8 Red Blood Count 4.99 10^6/uL 4.0-5.4 Hemoglobin 15.1 g/dL 12.0-16.0 Hematocrit 45 % 35-47 Mean Corpuscular Volume 89 fL 80-97 Mean Corpuscular Hemoglobin 30 pg 27-31 Mean Corpuscular HGB Conc 34 g/dL 31-36 Red Cell Distribution Width 13 % 10.5-15 Platelet Count 212 10^3/uL 150-450 Mean Platelet Volume 10 um3 7.4-10.4 Abs Neutrophils 3.9 10^3/uL 1.5-7.7 Abs Lymphocytes 2.0 10^3/uL 1.0-4.8 Abs Monocytes 0.6 10^3/uL 0-0.8 Abs Eosinophils 0.1 10^3/uL 0-0.6 Abs Basophils 0.1 10^3/uL 0-0.2 Abs Nucleated RBC 0.01 10^3/uL Granulocyte % 58.2 % 38-83 Lymphocyte % 30.0 % 25-47 Monocyte % 9.1 % High 1-9 Eosinophil % 1.0 % 0-6 Basophil % 1.7 % 0-2 Nucleated Red Blood Cells % 0.1 Comp Metabolic Panel 02/26/2016 Sodium 134 mmol/L 133-145 Potassium 3.9 mmol/L 3.5-5.0 Chloride 104 mmol/L 101-111 Co2 Carbon Dioxide 24 mmol/L 22-32 Anion Gap 6 mmol/L 2-11 Glucose 107 mg/dL High 70-100 Blood Urea Nitrogen 11 mg/dL 6-24 Creatinine 0.80 mg/dL 0.51-0.95 BUN/Creatinine Ratio 13.8 8-20 Calcium 9.3 mg/dL 8.6-10.3 Total Protein 6.9 g/dL 6.4-8.9 Albumin 4.6 g/dL 3.2-5.2 Globulin 2.3 g/dL 2-4 Albumin/Globulin Ratio 2.0 1-3 Total Bilirubin 0.60 mg/dL 0.2-1.0 Alkaline Phosphatase 67 U/L 34-104 Alt 32 U/L 7-52 Ast 20 U/L 13-39 Egfr Non- 83.1 >60 Egfr 106.9 >60 4 Laboratory test finding 02/26/2016 Erythrocyte Sed Rate 7 mm/Hr 0-14 TSH (Thyroid Stim Horm) 1.57 ?IU/mL 0.34-5.60 Vitamin B12 361 pg/mL 180-914 5 Folic Acid (Folate) 10.79 ng/mL >3.99 Rheumatoid Factor <15 IU/mL <15 6 Connective Tissue Panel 02/26/2016 Anti-Nuclear Antibody 0.3 U 7 Cyclic Citrullinated Peptide <15.6 U 8 Interpretation See Comment 9 Mumps Igg 12/11/2015 Mumps Virus IgG Antibody Positive 10 Mumps IgG Antibody Index 1.7 11 Rubella Igg Titer 12/11/2015 Rubella IgG Antibody Positive 12 Rubella IgG Antibody Index 2.7 13 Rubeola Measles Igg AB 12/11/2015 Rubeola (Measles) IgG Antibody Positive 14 Rubeola IgG Antibody Index 4.0 15 Varicella Zoster Igg AB 12/11/2015 Varicella-Zoster IgG Antibody Negative 16 Varicella IgG Antibody Index 0.7 17 Hepatitis Acute PNL 12/11/2015 Hepatitis C Antibody Nonreactive Nonreactive (CMC) Hepatitis A AB Igm Nonreactive Nonreactive Hepatitis B Core AB Igm Nonreactive Nonreactive Hepatitis B Surface Ag Nonreactive Nonreactive GC/Chlamydia Amplified Rna 06/19/2015 Chlamydia trachomatis Rna Negative Negative Neisseria gonorrhoeae (GC) Rna Negative Negative 18 HPV 16, 18/45 Genotype 06/19/2015 HPV 16 Genotype Negative Negative HPV 18/45 Genotype Negative Negative Laboratory test finding 06/19/2015 HPV Rna Ww/Reflex Genotype POSITIVE Negative 19 Cytology Interface Order SEE RESULT BELOW 20 Comprehensive Metabolic Panel 06/21/2014 Glucose 121 mg/dL High 76-115 BUN 13 mg/dL 5-23 Creatinine 1.2 mg/dL 0.5-1.4 Glom Filtration Rate, Estimate 56 mL/min >60 If >60 mL/min >60 21 BUN/Creat 10.8 ratio Sodium 139 mmol/L 136-145 Potassium 4.2 mmol/L 3.5-5.1 Chloride 106 mmol/L 98-107 Carbon Dioxide 27 mEq/L 18-29 Anion Gap 10 mEq/L 8-16 Calcium 8.7 mg/dL 8.5-10.1 Total Protein 6.8 g/dL 6.3-8.0 Albumin 4.0 g/dL 3.5-5.0 Globulin 2.8 g/dL 1.9-4.3 Alb/Glob 1.4 ratio Bilirubin,Total 0.3 mg/dL 0.2-1.2 Sgot/Ast 18 U/L 16-40 SGPT/Alt 35 U/L 30-65 Alkaline Phosphatase 84 U/L 50-136 CBC W/Automated Diff 06/21/2014 White Blood Count 7.8 K/uL 3.1-10.7 Red Blood Count 4.83 M/uL 3.90-5.40 Hemoglobin 14.6 gm/dL 11.6-15.8 Hematocrit 42.4 % 36.0-46.1 Mean Cell Volume 87.8 fl 80.9-99.0 Mean Corpuscular HGB 30.2 pg 25.9-32.7 Mean Corpuscular HGB Conc 34.4 g/dL High 30.8-34.3 Platelet Count 246 K/uL 155-360 Red Cell Distri Width SD 40.3 fl 3-47 Red Cell Distri Width %CV 12.9 % 11.7-14.4 Mean Platelet Volume 12.0 fL 8.9-12.4 Neut% 60.0 % 40.4-72.8 Lymph % 25.4 % 17.0-46.1 Dawes % 12.8 % 4.3-13.2 Eo% 1.3 % 0.0-6.6 Bas% 0.5 % 0.0-1.1 Neut# 4.70 K/uL 1.0-7.0 Lymph # 1.99 K/uL 0.8-3.4 Dawes # 1.00 K/uL High 0.3-0.9 Eos # 0.10 K/uL 0.0-0.5 Baso # 0.04 K/uL 0.0-0.1 Manual Differential 02/19/2014 Neutrophil % 56 % 38-83 Band % 6 % 0-8 Lymphocytes % 16 % Low 25-47 Monocytes % 20 % High 0-13 Eosinophils % 2 % 0-6 RBC Morphology Normal Normal Laboratory test finding 02/19/2014 Monospot Negative Negative Pathologist Review (SEE NOTE) 22 Culture Throat 02/19/2014 Throat Culture (SEE NOTE) 23 CBC Auto Diff 02/19/2014 White Blood Count 9.8 10^3/uL 4.8-10.8 Red Blood Count 5.11 10^6/uL 4.0-5.4 Hemoglobin 15.6 g/dL 12.0-16.0 Hematocrit 44 % 35-47 Mean Corpuscular Volume 87 fL 80-97 Mean Corpuscular Hemoglobin 31 pg 27-31 Mean Corpuscular HGB Conc 35 g/dL 31-36 Red Cell Distribution Width 13 % 10.5-15 Platelet Count 163 10^3/uL 150-450 Mean Platelet Volume 10 um3 7.4-10.4 Abs Neutrophils 6.6 10^3/uL 1.5-7.7 Abs Lymphocytes 1.2 10^3/uL 1.0-4.8 Abs Monocytes 1.8 10^3/uL High 0-0.8 Abs Eosinophils 0.1 10^3/uL 0-0.6 Abs Basophils 0.1 10^3/uL 0-0.2 Abs Nucleated RBC 0.01 10^3/uL Laboratory test finding 02/19/2014 C Reactive Protein 129.67 mg/L High &lt ; 5.00 24 Comp Metabolic Panel 02/19/2014 Sodium 137 mmol/L 133-145 Potassium 4.0 mmol/L 3.7-5.6 Chloride 102 mmol/L 101-111 Co2 Carbon Dioxide 28 mmol/L 22-32 Anion Gap 7 mmol/L 2-11 Glucose 100 mg/dL 70-100 Blood Urea Nitrogen 12 mg/dL 6-24 Creatinine 0.85 mg/dL 0.51-0.95 BUN/Creatinine Ratio 14.1 8-20 Calcium 9.3 mg/dL 8.6-10.3 Total Protein 7.2 g/dL 6.4-8.9 Albumin 4.6 g/dL 3.2-5.2 Globulin 2.6 g/dL 2-4 Albumin/Globulin Ratio 1.8 1-3 Total Bilirubin 0.60 mg/dL 0.2-1.0 Alkaline Phosphatase 76 U/L 34-104 Alt 21 U/L 7-52 Ast 16 U/L 13-39 Egfr Non- 78.5 >60 Egfr 101.0 >60 25 Laboratory test finding 02/19/2014 Serum Negative Negative 26 Throat-Beta Strept 02/17/2014 Throat Beta Strep (SEE NOTE) 27 Culture 1 WYS Severe Sepsis and Septic Shock Management Bundle Measure requires all lactic acids initially measuring >2.0 mmol/L be repeated. 2 Because ethnic data is not always readily available, this report includes an eGFR for both -Americans and non- Americans. The National Kidney Disease Education Program (NKDEP) does not endorse the use of the MDRD equation for patients that are not between the ages of 18 and 70, are , have extremes of body size, muscle mass, or nutritional status, or are non- or non-. According to the National Kidney Foundation, irrespective of diagnosis, the stage of the disease is based on the level of kidney function: Stage Description GFR(mL/min/1.73 m(2)) 1 Kidney damage with normal or decreased GFR 90 2 Kidney damage with mild decrease in GFR 60-89 3 Moderate decrease in GFR 30-59 4 Severe decrease in GFR 15-29 5 Kidney failure <15 (or dialysis) 3 Football Scout: TERI Lau Due to the increased sensitivity of molecular testing, reflex cultures are no longer performed. 4 Because ethnic data is not always readily available, this report includes an eGFR for both -Americans and non- Americans. The National Kidney Disease Education Program (NKDEP) does not endorse the use of the MDRD equation for patients that are not between the ages of 18 and 70, are , have extremes of body size, muscle mass, or nutritional status, or are non- or non-. According to the National Kidney Foundation, irrespective of diagnosis, the stage of the disease is based on the level of kidney function: Stage Description GFR(mL/min/1.73 m(2)) 1 Kidney damage with normal or decreased GFR 90 2 Kidney damage with mild decrease in GFR 60-89 3 Moderate decrease in GFR 30-59 4 Severe decrease in GFR 15-29 5 Kidney failure <15 (or dialysis) 5 Normal Range 180 to 914 Indeterminate Range 145 to 180 Deficient Range <145 6 Test Performed by: [address] [address] [place]: Randall Elliott II, M.D., Ph.D. 7 REFERENCE VALUE <=1.0 (Negative) 8 REFERENCE VALUE <20.0 (Negative) 9 Tests for antibodies to dsDNA and DELGADO antigens are not performed automatically unless the AYAKA result is > or= 3.0 U. Studies performed at [facility] indicate that positive AYAKA results <3.0 U are rarely accompanied by positive second order tests. Test Performed by: [place] [address] [place]: Randall Elliott II, M.D., Ph.D. 10 Results suggest response to immunization or prior exposure to the virus. REFERENCE VALUE Vaccinated: Positive (>=1.1 AI) Unvaccinated: Negative (<=0.8 AI) 11 Test Performed by: [facility] [place] [address] [place]: Randall Elliott II, M.D., Ph.D. 12 Results suggest response to immunization or prior exposure to the virus. REFERENCE VALUE Vaccinated: Positive (>=1.0 AI) Unvaccinated: Negative (<=0.7 AI) 13 Test Performed by: [facility] [place] [address] [place]: Randall Elliott II, M.D., Ph.D. 14 Results suggest response to immunization or prior exposure to the virus. REFERENCE VALUE Vaccinated: Positive (>=1.1 AI) Unvaccinated: Negative (<=0.8 AI) 15 Test Performed by: [facility] - [address] [address] [place]: Randall Elliott II, M.D., Ph.D. 16 REFERENCE VALUE Vaccinated: Positive (>=1.1 AI) Unvaccinated: Negative (<=0.8 AI) 17 Test Performed by: [facility] - [address] [address] [place]: Randall Elliott II, M.D., Ph.D. 18 Female urine specimens have been self-validated by [facility] and have been granted conditional assay approval by [facility]. 19 The high-risk HPV types detected by the assay include: 16, 18, 31, 33, 35, 39, 45, 51, 52, 56, 58, 59, 66, and 68. 20 SEE RESULT BELOW Name: WILLIAMJENNIFER : [address]: Daily Cox NP Acct: [id number] Unit: [id number] AGE: 29 Location: [facility] Re06/19/15 SEX: F Status: REG REF SPEC: [id number] GABI: 06/19/15-[address] [facility] [address]: Daily Cox SHOT FIREMAN REQ: [id number] RECD: 06/19/15943 STATUS: LAKSHMI PATE DR: Maxime Pereyra MD _ ORDERED: IMAGE ANALYSIS, PAP SM PATH REV, HPV/Thin Prep, HPV 16/18 GENE FINAL DIAGNOSIS EPITHELIAL CELL ABNORMALITIES Low grade squamous intraepithelial lesion (LSIL) A. Ectocervical/Endocervical Specimen Adequacy: Satisfactory of evaluation Transformation zone component identified Patient Information: HPV: High risk HPV RNA testing regardless of pap results. HPV 16/18 Genotype for HPV pos Actual Specimen Date: 06/19/15 Last Menstrual Date: 06/09/15 ?: N Post Menopausal?: N Hysterectomy?: N Previous Abnormal Pap Smears?:N Date Time Test Result Flag (u) Normal Range 06/19/15 1030 HPV RNA RFLX GE POSITIVE H Negative The high-risk HPV types detected by the assay include: 16, 18, 31, 33, 35, 39, 45, 51, 52, 56, 58, 59, 66, and 68. Signed (signature on file) Rachele Luna MD 3383 This Pap test was evaluated with the assistance of the [employer] Test Imaging System. Due to cytologic findings at the technical intern microscope, comprehensive manual rescreening by a Photo Tech may be required. The Pap Smear is a screening test designed to aid in the detection of premalignant and malignant conditions of the uterine cervix. It is not a diagnostic procedure and should not be used as the sole means of detecting cervical cancer. Both false- positive and false- negative reports do occur. Depending on your risk status, a Pap smear should be obtained and evaluated every 1-3 years. END OF REPORT * ML=Testing performed at Main Lab DEPARTMENT OF PATHOLOGY, [address] [place] [address] Jose Red M.D. Director [facility] # [id number] RUN DATE: 06/20/15 [facility] LAB LIVE PAGE 1 Patient: JENNIFER THOMAS [id number] (Continued) 21 Note: Persistent reduction for 3 months or more in an eGFR <60 mL/min/1.73 m2 defines CKD. Patients with eGFR values >/=60 mL/min/1.73 m2 may also have CKD if evidence of persistent proteinuria is present. The original MDRD equation for estimated GFR is not valid for patients less than 18 years of age. Additional information may be found at www.kdoqi.org. 22 CBC and smear reviewed. Monocytosis confirmed. Favor reactive process. No blasts seen. REVIEWED BY JOSE RED MD 23 RUN DATE: 02/21/14 [facility] LAB LIVE PAGE 1 RUN TIME: 0732 [address] [place], [place] [address] Specimen Inquiry Name: WILLIAMJENNIFER : [address]: Tasneem Beltran MD Acct: [id number] Unit: [id number] AGE: 28 Location: ED Re02/19/14 SEX: F Status: DEP ER SPEC: [id number] GABI: 02/19/14-[address] [facility] [address]: Tasneem Beltran MD REQ: [id number] RECD: 02/19/14 STATUS: JORDI PATE DR: Maxime Pereyra MD _ SOURCE: THROAT SPDESC: ORDERED: Throat Culture Procedure Result Verified Site Throat Culture Final 02/21/14- 1046 ML Organism 1 NORMAL HEAVEN Quantity 3+ END OF REPORT * ML=Testing performed at Main Lab DEPARTMENT OF PATHOLOGY, [address] [place] [address] Jose Red M.D. Director [facility] Permit #[id number] 24 Acute inflammation: >10.00 25 Because ethnic data is not always readily available, this report includes an eGFR for both -Americans and non- Americans. The National Kidney Disease Education Program (NKDEP) does not endorse the use of the MDRD equation for patients that are not between the ages of 18 and 70, are , have extremes of body size, muscle mass, or nutritional status, or are non- or non-. According to the National Kidney Foundation, irrespective of diagnosis, the stage of the disease is based on the level of kidney function: Stage Description GFR(mL/min/1.73 m(2)) 1 Kidney damage with normal or decreased GFR 90 2 Kidney damage with mild decrease in GFR 60-89 3 Moderate decrease in GFR 30-59 4 Severe decrease in GFR 15-29 5 Kidney failure <15 (or dialysis) 26 This test detects intact HCG only and is indicated for the early detection of . 27 RUN DATE: 02/19/14 [facility] LAB LIVE PAGE 1 RUN TIME: [address] [place] [address] Specimen Inquiry Name: JENNIFER THOMAS : [address]: Michelle Shrestha MD Acct: [id number] Unit: [id number] AGE: 28 Location: [facility] Re02/17/14 SEX: F Status: DEP ER SPEC: [id number] GABI: 02/17/14-[address] [facility] [address]: Michelle Shrestha MD REQ: [id number] RECD: 02/17/14 STATUS: JORDI PATE DR: Maxime Pereyra MD [facility] _ SOURCE: THROAT SPDESC: ORDERED: Throat Beta Str Procedure Result Verified Site Throat Beta Strep Culture Final 02/19/14- 0828 ML Organism 1 STREP GRP A BY BACITRACIN DISC END OF REPORT * ML=Testing performed at Main Lab DEPARTMENT OF PATHOLOGY, [address] [place] [address] Jose Red M.D. Director [facility] Permit #[id number] Procedures Date CPT Code Description Status 04/13/2017 57973 Tympanometry Completed 11/28/2015 56155 Tympanometry Completed 11/11/2014 83046 Tympanometry Completed 01/01/2013 37867 Tympanometry Completed 01/01/2013 17528 Diagnostic Bekesy Audiometry Completed 08/23/2012 08464 Injection DX/Therapeutic/Prophy Completed Encounters Type Date Location Provider CPT E/M Dx Office Visit 10/24/2017 8:30a [facility] Cipriano Padilla [facility] [address]644 H60.313 Z79.891 F90.1 Office Visit 09/19/2017 8:45a [facility] Cipriano Padilla [facility] 72072 F90.1 M25.562 M54.2 F17.210 Office Visit 09/07/2017 8:45a [facility] Cipriano Padilla [facility] [address]7600 F90.1 M25.562 Office Visit 08/17/2017 9:45a [facility] Cipriano Padilla [facility] 47427 L03.818 Z23 F90.1 Z23 Office Visit 08/08/2017 10:15a [facility] Cipriano Padilla [facility] 60289 L03.818 F90.1 F17.210 Office Visit 07/18/2017 1:30p [facility] Cipriano Padilla [facility] 93587 M54.2 F90.1 F17.210 Office Visit 04/13/2017 9:30a [facility] Cipriano Padilla [facility] 76358 M25.562 F17.210 M54.2 H66.92 E66.01 Office Visit 11/15/2016 10:45a [facility] Cipriano Padilla [facility] 40921 F17.210 H66.92 M25.562 Office Visit 09/13/2016 10:30a [facility] Cipriano Padilla 03571 F17.210 F41.9 E66.01 M25.562 G60.3 J30.9 H66.93 Office Visit 08/04/2016 11:45a [facility] Cipriano Padilla [employer] 07176 F17.210 F41.9 E66.01 H66.93 J02.9 R50.9 R05 M25.562 Office Visit 07/05/2016 11:45a [facility] Cipriano Padilla [facility] 12196 F17.210 F41.9 E66.01 Office Visit 05/26/2016 9:00a [facility] Cipriano Padilla [facility] 17035 F17.210 M79.606 M25.562 J30.9 G60.3 Office Visit 04/26/2016 1:45p [facility] Cipriano Padilla [facility] 97286 F17.210 J30.9 G60.3 M79.606 M25.562 Office Visit 04/21/2016 11:45a [facility] Cipriano Padilla [facility] 90531 H66.92 J02.9 R50.9 Office Visit 03/26/2016 9:30a [facility] Maxime Pereyra M.D. 91137 G60.3 M79.606 M79.643 M25.562 S83.62xA L20.9 J30.9 F17.210 R09.81 H69.83 R53.83 F41.9 Office Visit 02/26/2016 11:45a [facility] Maxime Pereyra M.D. 19248 G60.3 M79.606 M79.643 M25.562 S83.62xA L20.9 J30.9 F17.210 R09.81 H69.83 R53.83 F41.9 Office Visit 01/23/2016 2:00p [facility] Maxime Pereyra M.D. 54030 M25.562 S83.62xA L20.9 J30.9 F17.210 R09.81 H69.83 Office Visit 01/02/2016 1:30p [facility] Maxime Pereyra M.D. 42865 M25.562 S83.62xA L20.9 J30.9 F17.210 R09.81 H69.83 Office Visit 12/11/2015 11:00a [facility] Maxime Pereyra M.D. 47817 M25.562 S83.62xA L20.9 J30.9 F17.210 R09.81 H69.83 Z23 H66.93 H92.03 Z13.89 Office Visit 11/28/2015 11:15a [facility] Maxime Pereyra M.D. 38112 M25.562 S83.62xA L20.9 J30.9 F17.210 H66.93 H92.03 R09.81 Office Visit 11/11/2014 11:30a [facility] Maxime ePreyra M.D. 68390 382.9 388.70 305.1 478.19 477.8 Office Visit 06/27/2014 10:30a [facility] Katy Calderon FNP 21643 616.0 528.9 723.1 350.2 847.0 Office Visit 06/21/2014 1:45p [facility] Katy Calderon FNP 90637 723.1 616.0 528.9 847.0 350.2 Office Visit 01/15/2014 9:45a [place] [address] 724.2 724.5 Office Visit 11/12/2013 10:45a [facility] Nafisa Enriquez REYNA [address] 462 388.70 381.81 786.2 461.9 466.0 780.79 305.1 Office Visit 04/18/2013 2:30p [facility] Cipriano Padilla [facility] 05645 384.20 462 305.1 278.01 Office Visit 01/01/2013 11:30a [facility] Maxime Pereyra M.D. 33134 381.04 381.81 388.70 305.1 389.8 Office Visit 09/21/2012 2:00p [facility] Genie Phelps [facility] 90163 724.2 724.3 381.81 388.70 Office Visit 08/23/2012 1:30p [facility] Genie Phelps [facility] 88865 388.70 V04.81 V74.1 Plan of Care 10/24/2017 - Cipriano Padilla FNPH60.313 Diffuse otitis externa, bilateralNew Medication:Ciprodex 0.3-0.1 %Comments:ciprodex gtts as fnuxgzdjG49.891 senior living (current) use of opiate analgesicComments:REVIEWED MEDICATIONS AND DIRECTIONS WITH PATIENT AND FAMILY DUR REVIEWED TOX SCREEN TYRFMNTAN93.1 Attn- defct hyperactivity disorder, predom hyperactive typeComments:CONTINUE MEDICATIONS COUNSELING AND REASSURANCE EXTENDED
[2017-11-01 18:15] VITALS: BP 119/78
--- NOTE | 2017-11-01 18:15 | UC ---
Throat Pain/Nasal Maximiliano HPI - HPI Summary HPI Summary: 32 year old female presents with sore throat and sinus congestion. - History of Current Complaint Chief Complaint: UCRespiratory Stated Complaint: sore throat Time Seen by Provider: 11/01/17 18:14 Hx Obtained From: Patient Hx Last Menstrual Period: pcos Onset/Duration: Sudden Onset Severity: Moderate Pain Scale Used: 0-10 Numeric - 5 Cough: Nonproductive Associated Signs & Symptoms: Positive: Dysphagia - Allergies/Home Medications Allergies/Adverse Reactions: Allergies Allergy/AdvReac Type Severity Reaction Status Date / Time No Known Allergies Allergy Verified 08/10/17 22:26 Home Medications: Home Medications Amphetamine MIXED SALT TAB* [Adderall TAB*] 10 mg PO DAILY 11/01/17 [History Confirmed 11/01/17] Amphetamine-Dextroamphetamine [Adderall Xr 10 mg] 1 cap PO 11/01/17 [History] PMH/Surg Hx/FS Hx/Imm Hx Previously Healthy: Yes - Surgical History Surgical History: Yes Surgery Procedure, Year, and Place: L ear(mastoid); ; TONSILECTOMY - Family History Known Family History: Positive: None, Cardiac Disease, Other - lupus Negative: Hypertension, Diabetes, Respiratory Disease, Blood Disorder - Social History Alcohol Use: Rare Substance Use Type: None, Prescribed Smoking Status (MU): Heavy Every Day Tobacco Smoker Type: Cigarettes Amount Used/How Often: 1/2 PPD Length of Time of Smoking/Using Tobacco: 20 Years Have You Smoked in the Last Year: Yes When Did the Patient Quit Smoking/Using Tobacco: about a month, uses [employer] Household Exposure Type: Cigarettes - Immunization History Most Recent Influenza Vaccination: Not the Season Review of Systems Constitutional: Negative Skin: Negative Eyes: Negative ENT: Sore Throat, Nasal Discharge, Sinus Congestion, Sinus Pain/Tenderness Respiratory: Negative Cardiovascular: Negative Gastrointestinal: Negative Genitourinary: Negative Motor: Negative Neurovascular: Negative Musculoskeletal: Negative Neurological: Negative Psychological: Negative All Other Systems Reviewed And Are Negative: Yes Physical Exam Triage Information Reviewed: Yes Appearance: Well-Appearing Vital Signs: Initial Vital Signs Temp 36.9 C 11/01/17 18:12 Pulse 105 11/01/17 18:12 Resp 18 11/01/17 18:12 BP 119/78 11/01/17 18:12 Pulse Ox 98 11/01/17 18:12 Vital Signs Reviewed: Yes Eye Exam: Normal ENT: Positive: Pharyngeal erythema, Nasal congestion, Nasal drainage, Sinus tenderness Dental Exam: Normal Neck exam: Normal Neck: Positive: 1 Respiratory Exam: Normal Cardiovascular Exam: Normal Abdominal Exam: Normal Musculoskeletal Exam: Normal Neurological Exam: Normal Psychological Exam: Normal Skin Exam: Normal Throat Pain/Nasal Course/Dx - Differential Dx/Diagnosis Provider Diagnoses: sinusitis Discharge - Discharge Plan Condition: Stable Disposition: HOME Prescriptions: Amoxicillin/Clavulanate TAB* [Augmentin TAB 875*] 875 mg PO BID #20 tab LoraTADine TAB(NF) [Claritin 10 MG TAB(NF)] 10 mg PO DAILY #30 tab Magic M W2 Samuel/Maal/Nyst/Lido* 5 ml SWISH SPIT QID PRN #120 ml PRN Reason: Pain Patient Education Materials: Sinusitis (ED) Referrals: Maxime Pereyra MD [Primary Care Provider] -
== END 2017-11-01 18:53 | disposition home or self-care (01) ==
LOC: UCEAST 18:02
DX: J32.9 Chronic sinusitis, unspecified (principal); Z72.0 Tobacco use
CPT/HCPCS: 87651; 99212; G0463

== ENCOUNTER 2018-01-02 20:03 | Emergency (ER) | payer BC ==
--- OUTSIDE RECORDS SUMMARY | 2018-01-02 20:10 | XMS REPORT ---
:1985 External Reference #:[id number] Author Organization [facility] Address [address] [address] Phone [phone] Care Team Providers Name Role Phone Chantelle Gaxiola NP Care Team Information Wirer Unavailable Payers Type Date Identification Numbers Payment Provider Subscriber Health Maintenance Effective: Policy Number: BCBS Ppo Jennifer Thomas Organization (O) 04/07/2015 [id number] PayID: [id number] [address] [address] [place] [phone] Problems Description No Information Family History Date Family Member(s) Problem(s) Comments Father Good Health Mother Lupus Erythematosus First Daughter Good Health Social History Type Date Description Comments Marital Status Single 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 morning and one tablet by mouth a noon every day.lan specialist checked. Ofloxacin Active Solution 0.3% QS 5 drops H60.312 Minor (Otic) Kaushik affected Chantelle, ear every [employer] day x 7 days Naproxen Active Tablets 500mg 60tabs take two M25.562 Kaushik Gaxiola tablets Chantelle, loading [employer] dose then once by mouth twice a day as needed Immunizations CPT Code Status Date Vaccine Lot # [id number] Refused 12/13/2017 Influenza Vac, 3 Yrs & Older, Quadrivalent, Split, Im Use Vital Signs Date Vital Result Comment 12/30/2017 Weight 183.00 lb BP Systolic 124 mmHg BP Diastolic 86 mmHg Height 62 inches 5'2" BMI (Body Mass Index) 33.5 kg/m2 12/13/2017 Body Temperature 98.1 F Weight 181.00 lb Heart Rate 120 /min BP Systolic 140 mmHg BP Diastolic 98 mmHg Height 62 inches 5'2" BMI (Body Mass Index) 33.1 kg/m2 Results Test Date Test Result H/L Range Note Laboratory test finding 12/13/2017 CRP (C-Reactive) 0.30 mg/dL 0.00-0.75 Rheumatoid Factor <10.0 IU/mL 0.0-10.0 Lyme Igm/Igg AB -RL 12/13/2017 Lyme Igm/Igg AB @ NEGATIVE (Neg) 1 Laboratory test finding 12/13/2017 Uric Acid 5.6 mg/dL 2.6-7.6 [place] Screen With Reflex-FCMG 12/13/2017 [place] Screen NEGATIVE Negative dsDNA IgG 0.70 Negative 2 Laboratory test finding 12/13/2017 Vitamin D 25 Hydroxy 22 ng/mL Low 30- 100 3 Basic (BMP) 12/13/2017 Sodium 138 mmol/L 135-146 4 Potassium 4.2 mmol/L 3.5-5.2 Chloride# 102 mmol/L 97-110 5 Carbon Dioxide 27 mmol/L 24-34 Glucose 121 mg/dL High 70-105 BUN 7 mg/dL 6-26 Creatinine 0.8 mg/dL 0.5-1.4 Calcium 9.9 mg/dL 8.5-10.2 Non Arlette Egfr >60 >60 6 Arlette Egfr >60 >60 7 Anion Gap 9 mmol/L 5-15 8 Drugs Abuse/Etoh Urn-RL 12/13/2017 Amphetamines Positive 9 Barbiturates Negative 10 Benzodiazepines Negative 11 Cocaine Negative 12 Opiates Negative 13 Phencyclidine Negative 14 Marijuana Negative 15 Alcohol Negative 16 Creatinine 197.3 17 Cdasu 7A Comments See Note 18 Urine Amphetamines Conf 12/13/2017 Amphetamine Urine >5000 19 Methamphetamine Ur <200 20 Methylenedioxyamphet <200 21 Methylenedioxymetham <200 22 Methylenedioxyethyl <200 23 1 A Negative serologic test for Lyme Disease indicates no serologic evidence of infection with B burgdorferi at the time this specimen was collected. A repeat specimen should be collected in 2 to 4 weeks if clinically indicated. Unless otherwise specified, testing performed by [facility], [address] [address] 2 Interpretation: <0.8 -9 IU/ml Negative 10-15 IU/ml Equivocal >15.0 IU/ml Positive 3 Clinical Guidelines for recommended serum 25(OH)Vitamin D Deficient at less than 20 ng/mL Insufficient at 20 to <30 ng/mL Sufficient at 30-100 ng/mL Toxicity at greater than 100 ng/mL 4 Updated reference range on new analyzer 5 Updated reference range on new analyzer 6 Concerning GFR Guidelines: Normal function or mild renal disease, if clinically at risk: >/=60 mL/min Moderately decreased: 30-59 Severely decreased: 15-29 Renal failure: <15 Glomerular Filtration Rate (GFR) is estimated based on the MDRD equation, which assumes a steady state for creatinine as recommended by the National Kidney Disease Education Program in conjunction with the National Institutes of Health and the National Kidney Foundation. Clinical conditions in which it may be necessary to measure GFR by using clearance methods include extremes of age and body size, severe malnutrition or obesity, diseases of skeletal muscle, paraplegia or quadriplegia, vegetarian diet, rapidly changing kidney function, and calculation of the dose of potentially toxic drugs that are excreted by the kidneys. 7 Concerning GFR Guidelines for Americans: Normal function or mild renal disease, if clinically at risk: >/=60 mL/min Moderately decreased: 30-59 Severely decreased: 15-29 Renal failure: <15 8 Updated Reference Range 9 Positive Reference range: Cutoff 300 Unit: ng/mL If the screen is positive, then confirmation testing by mass spectrometry will be added. Additional charges will apply. 10 Negative Reference range: Cutoff 200 Unit: ng/mL 11 Negative Reference range: Cutoff 200 Unit: ng/mL 12 Negative Reference range: Cutoff 150 Unit: ng/mL 13 Negative Reference range: Cutoff 300 Unit: ng/mL 14 Negative Reference range: Cutoff 25 Unit: ng/mL 15 Negative Reference range: Cutoff 20 Unit: ng/mL 16 Negative Reference range: Cutoff 40 Unit: mg/dL 17 Reference range: 20.0 to 400.0 Unit: mg/dL 18 See Note INTERPRETIVE INFORMATION: Drug Panel 7A, Urn, Scrn w/Rflx to Conf The absence of expected drug(s) and/or drug metabolite(s) may indicate non-compliance, inappropriate timing of specimen collection relative to drug administration, poor drug absorption, diluted/adulterated urine, or limitations of testing. The concentration at which the screening test can detect a drug or metabolite varies within a drug class. Specimens for which drugs or drug classes are detected by the screen are reflexed to a second, more specific technology (GC/MS, GC/FID, and/or LC-MS/MS). The concentration value must be greater than or equal to the cutoff to be reported as positive. Interpretive questions should be directed to the laboratory. For medical purposes only; not valid for forensic use. Oxycodone results are reported with the opiates results. MDMA results are reported with the amphetamines results. Performed by [facility], [address] [facility],[place] [id number] [email or web address], Rodrick Hills MD, Lab. Director Unless otherwise specified, testing performed by [email or web address] [address] [place] [address] 19 Unit: ng/mL Consistent with use of a drug containing amphetamine. May also reflect metabolism of methamphetamine, when methamphetamine is present. Amphetamine and methamphetamine exist in d- and l-isomeric forms. These forms are not distinguished by this test. Isomeric separation is available separately for an additional charge. INTERPRETIVE INFORMATION: Amphetamines, Urine, Quantitative Methodology: Quantitative Liquid Chromatography-Tandem Mass Spectrometry Positive cutoff: 200 ng/mL For medical purposes only; not valid for forensic use. The absence of expected drug(s) and/or drug metabolite(s) may indicate non-compliance, inappropriate timing of specimen collection relative to drug administration, poor drug absorption, diluted/adulterated urine, or limitations of testing. The concentration value must be greater than or equal to the cutoff to be reported as positive. Interpretive questions should be directed to the laboratory. Test developed and characteristics determined by [facility]. See Compliance Statement B: [employer]/ 20 Unit: ng/mL 21 Unit: ng/mL 22 Unit: ng/mL 23 Unit: ng/mL Performed by [facility], [address] [facility],[place] [id number] [email or web address], Rodrick Hills MD, Lab. Director Procedures Description No Information Encounters Type Date Location Provider CPT E/M Dx Office Visit 12/13/2017 12:00p [place] [address] R41.840 M25.562 H60.312 Plan of Care Future Appointment(s):01/13/2018 11:00 am - Chantelle Gaxiola [employer] [facility] [place] - Chantelle Gaxiola, NPR41.840 Attention and concentration deficitComments: drug screen consistent sent scriptFollow up:2 weeks
[2018-01-02 20:35] VITALS: BP 148/102
[2018-01-02] MEDS ORDERED: Sulfamethox/Trimethoprim DS 800/160* TAB PO ONE (20:53)
--- NOTE | 2018-01-02 21:02 | UC ---
Skin Complaint HPI - HPI Summary HPI Summary: 3 days ago woke with red spot on posterior calf. Area got a little worse, more swollen since then, last night a small amount of foul pus drained when she squatted down. - History of Current Complaint Hx Obtained From: Patient Hx Last Menstrual Period: pcos ?: No Onset/Duration: Gradual Onset, Lasting Days Skin Exposure Onset/Duration: Days Ago Timing: Constant Pain Intensity: 0 Location: Discrete Character: Pain, Redness, Painful Aggravating Factor(s): Nothing Alleviating Factor(s): Nothing Associated Signs & Symptoms: Positive: Drainage <Suma Amos - Last Filed: 01/02/18 20:57> <Jeannette Camilo - Last Filed: 01/02/18 21:05> - History of Current Complaint Chief Complaint: UCBiteInjury Time Seen by Provider: 01/02/18 20:47 Stated Complaint: SPIDER BITE - Allergy/Home Medications Allergies/Adverse Reactions: Allergies Allergy/AdvReac Type Severity Reaction Status Date / Time No Known Allergies Allergy Verified 01/02/18 20:36 Review of Systems Constitutional: Negative Skin: Other - spot on L leg Eyes: Negative ENT: Negative Respiratory: Negative Cardiovascular: Negative Gastrointestinal: Negative Genitourinary: Negative Motor: Negative Neurovascular: Negative Musculoskeletal: Negative Neurological: Negative Psychological: Negative Is Patient Immunocompromised?: No All Other Systems Reviewed And Are Negative: Yes <Suma Amos - Last Filed: 01/02/18 20:57> PMH/Surg Hx/FS Hx/Imm Hx Previously Healthy: Yes - Surgical History Surgical History: Yes Surgery Procedure, Year, and Place: L ear(mastoid); ; TONSILECTOMY - Family History Known Family History: Positive: None, Cardiac Disease, Other - lupus Negative: Hypertension, Diabetes, Respiratory Disease, Blood Disorder - Social History Occupation: Employed Full-time Lives: With Family Alcohol Use: Rare Substance Use Type: None Smoking Status (MU): Heavy Every Day Tobacco Smoker Type: Cigarettes Amount Used/How Often: 1/2 PPD Length of Time of Smoking/Using Tobacco: 20 Years Have You Smoked in the Last Year: Yes When Did the Patient Quit Smoking/Using Tobacco: about a month, uses [employer] Household Exposure Type: Cigarettes - Immunization History Most Recent Influenza Vaccination: Not the 2015/2016 Season <Suma Amos - Last Filed: 01/02/18 20:57> Physical Exam Triage Information Reviewed: Yes Appearance: Well-Appearing, Obese Vital Signs: Initial Vital Signs Temp 98.7 F 01/02/18 20:29 Pulse 120 01/02/18 20:29 Resp 16 01/02/18 20:29 BP 148/102 01/02/18 20:29 Pulse Ox 100 01/02/18 20:29 Vital Signs Reviewed: Yes Eye Exam: Normal ENT Exam: Normal ENT: Positive: Normal ENT inspection, Hearing grossly normal, Pharynx normal, TMs normal Dental Exam: Normal Neck exam: Normal Neck: Positive: Supple, Nontender, No Lymphadenopathy Respiratory Exam: Normal Respiratory: Positive: Chest non-tender, Lungs clear, Normal breath sounds, No respiratory distress, No accessory muscle use Cardiovascular Exam: Normal Cardiovascular: Positive: RRR, No Murmur Musculoskeletal Exam: Normal Neurological Exam: Normal Neurological: Positive: Alert Psychological Exam: Normal Skin Exam: Other - L calf 2cm red raised area with scabbed center, no streaking or drainage <Suma Amos - Last Filed: 01/02/18 20:57> Vital Signs: Initial Vital Signs Temp 98.7 F 01/02/18 20:29 Pulse 120 01/02/18 20:29 Resp 16 01/02/18 20:29 BP 148/102 01/02/18 20:29 Pulse Ox 100 01/02/18 20:29 <Jeannette Camilo - Last Filed: 01/02/18 21:05> Course/Dx - Diagnoses Provider Diagnoses: L calf furuncle. Elevated blood pressure due to discomfort <Suma Amos - Last Filed: 01/02/18 20:57> Discharge <Suma Amos - Last Filed: 01/02/18 20:57> <Jeannette Camilo - Last Filed: 01/02/18 21:05> - Discharge Plan Condition: Stable Disposition: HOME Prescriptions: Sulfamethox/Trimethoprim DS* [Bactrim DS 800/160 TAB*] 1 tab PO BID #9 tab Patient Education Materials: Furunculosis and Carbunculosis (ED) Referrals: No Primary Care Phys,NOPCP [Primary Care Provider] - Additional Instructions: Don't poke or squeeze the area at all; it should gradually improve with time and antibiotics. Any sudden swelling or worsening please come back. Attestation Statement User Type: Provider - I was available for consult. This patient was seen by the advanced practice provider. The patient was not presented to, seen by, or examined by me.-Ale <Jeannette Camilo - Last Filed: 01/02/18 21:05>
== END 2018-01-02 21:00 | disposition home or self-care (01) ==
LOC: UCEAST 20:03
DX: L02.426 Furuncle of left lower limb (principal); R03.0 Elevated blood-pressure reading, without diagnosis of hypertension
CPT/HCPCS: 99212; A9270-GY; G0463

== ENCOUNTER 2018-02-21 08:57 | Emergency (ER) | payer BC ==
--- OUTSIDE RECORDS SUMMARY | 2018-02-21 09:04 | XMS REPORT ---
:1985 External Reference #:[id number] Author Organization [facility] Address [address] [address] Phone [phone] Care Team Providers Name Role Phone Chantelle Gaxiola NP Care Team Information Soap Tender Unavailable Payers Type Date Identification Numbers Payment Provider Subscriber Health Maintenance Effective: Policy Number: BCBS Ppo Jennifer Thomas Organization (O) 04/07/2015 [id number] PayID: [id number] [address] [address] [place] [phone] Problems Description No Information Family History Date [...] Qnty SIG Indications Ordering Provider Amphetamine-D Active Tablets 10mg 30tabs 1 by mouth garth Gaxiolampraymondtam 018 at noon Chantelle, ine [employer] Amphetamine-D Active Caps ER 10mg 30caps 1 tab by amador Gaxiolat 018 24HR mouth in Chantelle, ER the in the [employer] morning Ofloxacin Active Solution 0.3% QS 5 drops H60.312 Minor (Otic) Kaushik affected Chantelle, ear every [employer] day x 7 days Naproxen Active Tablets 500mg 60tabs take two M25.562 Kaushik Gaxiola tablets Chantelle, loading [employer] dose then once by mouth twice a day as needed Immunizations CPT Code Status Date Vaccine Lot # [id number] Refused 12/13/2017 Influenza Vac, 3 Yrs & Older, Quadrivalent, Split, Im Use Vital Signs Date Vital Result Comment 01/24/2018 Weight 178.00 lb BP Systolic 124 mmHg BP Diastolic 76 mmHg Height 62 inches 5'2" BMI (Body Mass Index) 32.6 kg/m2 12/30/2017 Weight 183.00 lb BP Systolic 124 [...] Unless otherwise specified, testing performed by [facility] [place] [address] 2 Interpretation: <0.8 -9 IU/ml Negative 10-15 [...] reported with the amphetamines results. Performed by [facility], [address] [place] [id number] [email or web address], Rodrick Hills MD, Lab. Director Unless otherwise specified, testing performed by [facility] of [employer] [address] [place] [id number] 19 Unit: ng/mL Consistent with use of [...] laboratory. Test developed and characteristics determined by [facility]. See Compliance Statement B: [email or web address] 20 Unit: ng/mL 21 Unit: ng/mL 22 Unit: ng/mL 23 Unit: ng/mL Performed by [facility], [address] [place], [place] [address] [address] [email or web address], Rodrick Hills MD, Lab. Director Procedures Description No Information Encounters Type Date Location Provider CPT E/M Dx Office Visit 12/30/2017 11:15[place] [address] R41.840 Office Visit 12/13/2017 12:00p Chantelle Roberto, [place] [address] R41.840 M25.562 H60.312 Plan of Care Future Appointment(s):02/24/2018 10:15 am - Chantelle Gaxiola, [employer] at [place]2017 - Chantelle Gaxiola, NPR41.840 Attention and concentration deficitAllNew Medication:Amphetamine-Dextroamphetamine 10 mgFollow up:1 month
[2018-02-21 11:18] VITALS: BP 132/76
--- NOTE | 2018-02-21 11:34 | RAD ---
INDICATION: Right lower rib pain COMPARISON: None TECHNIQUE: Multiple views of the ribs were obtained. FINDINGS: Bones: There is no evidence of acute rib fracture. LUNGS: The lungs are clear. There is no pneumothorax. Pleural spaces: There is no evidence of hemothorax. Other: None IMPRESSION: NEGATIVE EXAMINATION.
--- NOTE | 2018-03-07 15:47 | UC ---
Truncal Trauma HPI - HPI Summary HPI Summary: 32 y/o female, + tob use, jogging yesterday, slipped in mud landed on bank on R side, immediate pain, no LOC, head injury, pain continued. pain mainly along bottom of rib, worse with deep breath, cough, not improving. - History Of Current Complaint Chief Complaint: UCBackPain Stated Complaint: BACK PAIN Time Seen by Provider: 02/21/18 10:42 Hx Obtained From: Patient Hx Last Menstrual Period: pcos ?: No - urine preg neg Onset/Duration: Sudden Onset, Lasting Days Severity Initially: Moderate Severity Currently: Moderate Pain Intensity: 3 Pain Scale Used: 0-10 Numeric - Allergies/Home Medications Allergies/Adverse Reactions: Allergies Allergy/AdvReac Type Severity Reaction Status Date / Time No Known Allergies Allergy Verified 01/02/18 20:36 Home Medications: Home Medications Acetaminophen 650 mg PO 02/21/18 [History] Amphetamine MIXED SALT TAB* [Adderall TAB*] 20 mg PO DAILY 02/21/18 [History Confirmed 02/21/18] Naproxen [Naproxen 500 mg tab] 500 mg PO 02/21/18 [History] PMH/Surg Hx/FS Hx/Imm Hx Previously Healthy: Yes - Surgical History Surgical History: Yes Surgery Procedure, Year, and Place: L ear(mastoid); ; TONSILECTOMY - Family History Known Family History: Positive: None, Cardiac Disease, Other - lupus Negative: Hypertension, Diabetes, Respiratory Disease, Blood Disorder - Social History Alcohol Use: Rare Substance Use Type: None Smoking Status (MU): Heavy Every Day Tobacco Smoker Type: Cigarettes Amount Used/How Often: 1/2 PPD Length of Time of Smoking/Using Tobacco: 20 Years Have You Smoked in the Last Year: Yes When Did the Patient Quit Smoking/Using Tobacco: about a month, uses [employer] Household Exposure Type: Cigarettes - Immunization History Most Recent Influenza Vaccination: Not the 2016/2016 Season Review of Systems Skin: Bruising Musculoskeletal: Arthralgia, Decreased ROM, Edema, Myalgia Is Patient Immunocompromised?: No All Other Systems Reviewed And Are Negative: Yes Physical Exam Triage Information Reviewed: Yes Appearance: Well-Appearing, Well-Nourished, Pain Distress - pain with movement Vital Signs: Initial Vital Signs Temp 98.1 F 02/21/18 09:09 Pulse 101 02/21/18 09:09 Resp 18 02/21/18 09:09 BP 135/90 02/21/18 09:09 Pulse Ox 100 02/21/18 09:09 Neck: Positive: Supple, Nontender, No Lymphadenopathy, Other: - no spinal tenderness Respiratory: Positive: Lungs clear, Normal breath sounds, No respiratory distress, No accessory muscle use, Other: - + tender to light palpation lateral right ribs Cardiovascular Exam: Normal Abdomen Description: Positive: Nontender, No Organomegaly, Soft, Bruit. Negative: CVA Tenderness (R), CVA Tenderness (L) Truncal Trauma Course/Dx - Course Course Of Treatment: x-ray neg, no coughing up blood, pain medication, work note , conservative treatment - Differential Dx/Diagnosis Differential Diagnosis/HQI/PQRI: Chest Wall Contusion Provider Diagnoses: chest wall contusion Discharge - Sign-Out/Discharge Documenting (check all that apply): Discharge/Admit/Transfer - Discharge Plan Condition: Good Disposition: HOME Prescriptions: Cyclobenzaprine TAB* [Flexeril 10 MG TAB*] 10 mg PO BID PRN #10 tab PRN Reason: muscle spasms Diazepam TAB(*) [Valium TAB(*)] 5 mg PO TID PRN #6 tab MDD 3 PRN Reason: muscle spasms Lidocaine PATCH 5%* [Lidoderm 5% Patch*] 1 patch TRANSDERM DAILY #10 patch Patient Education Materials: Low Back Strain (ED), Lower Back Exercises (ED), Rib Contusion (ED) Forms: *Work Release Referrals: Leny Gaxiola NP [Primary Care Provider] - Additional Instructions: - Muscle spasm- Valium for severe spasms, to help with sleeping Flexeril for moderate spasms. both will cause drowsiness - Continue naproxen for inflammation, swelling, pain - Follow up with PCP - Return to ER with shortness of breath, coughing blood - lidoderm patches over painful ribs to help with pain - Continue to take deep breaths throughout the day - Billing Disposition and Condition Condition: GOOD Disposition: HOME
== END 2018-02-21 11:45 | disposition home or self-care (01) ==
LOC: UCEAST 08:57
DX: S20.219A Contusion of unspecified front wall of thorax, initial encounter (principal); W01.0XXA Fall on same level from slipping, tripping and stumbling without subsequent striking against object, initial encounter; Y93.02 Activity, running; Y92.9 Unspecified place or not applicable; Z32.02 Encounter for pregnancy test, result negative; F17.210 Nicotine dependence, cigarettes, uncomplicated
CPT/HCPCS: 84702; 99212; G0463

== ENCOUNTER 2018-04-15 10:35 | Emergency (ER) | payer BC ==
[2018-04-15 10:43] VITALS: BP 134/94
--- NOTE | 2018-04-15 14:46 | UC ---
Skin Complaint HPI - HPI Summary HPI Summary: c/o pain and redness near right armpit for several days, she drained some fluid yesterday, denies chills and fever. Tobacco use. - History of Current Complaint Chief Complaint: UCSkin Time Seen by Provider: 04/15/18 11:14 Stated Complaint: CYST UNDER ARM Hx Obtained From: Patient Hx Last Menstrual Period: ocos ?: No Onset/Duration: Sudden Onset, Lasting Days Onset Severity: Mild Current Severity: Moderate Pain Intensity: 5 Pain Scale Used: 0-10 Numeric Location: Discrete Character: Pain, Redness Aggravating Factor(s): Nothing Alleviating Factor(s): Nothing Associated Signs & Symptoms: Positive: Negative - Allergy/Home Medications Allergies/Adverse Reactions: Allergies Allergy/AdvReac Type Severity Reaction Status Date / Time No Known Allergies Allergy Verified 04/15/18 10:44 Review of Systems Constitutional: Negative All Other Systems Reviewed And Are Negative: Yes PMH/Surg Hx/FS Hx/Imm Hx Previously Healthy: Yes Psychological History: Other - adhd Other Psychological History: adhd - Surgical History Surgical History: Yes Surgery Procedure, Year, and Place: L ear(mastoid); ; TONSILECTOMY - Family History Known Family History: Positive: None, Cardiac Disease, Other - lupus Negative: Hypertension, Diabetes, Respiratory Disease, Blood Disorder - Social History Alcohol Use: Rare Substance Use Type: None Smoking Status (MU): Heavy Every Day Tobacco Smoker Type: Cigarettes Amount Used/How Often: 1/2 PPD Length of Time of Smoking/Using Tobacco: 20 Years Have You Smoked in the Last Year: Yes When Did the Patient Quit Smoking/Using Tobacco: about a month, uses [employer] Household Exposure Type: Cigarettes - Immunization History Most Recent Influenza Vaccination: Not the Season Physical Exam Triage Information Reviewed: Yes Appearance: Well-Appearing, No Pain Distress, Obese Vital Signs: Initial Vital Signs Temp 97.8 F 04/15/18 10:41 Pulse 113 04/15/18 10:41 Resp 20 04/15/18 10:41 BP 134/94 04/15/18 10:41 Pulse Ox 100 04/15/18 10:41 Vital Signs Reviewed: Yes Eyes: Positive: Conjunctiva Clear ENT: Positive: Hearing grossly normal Neck exam: Normal Respiratory: Positive: Chest non-tender Cardiovascular: Positive: Pulses Normal, Brisk Capillary Refill Musculoskeletal: Positive: Strength Intact, ROM Intact, No Edema Skin: Positive: Other - indurated erythematous area posterior to right axilla 3x4cm in dimension, tender to palpation with central scabing, non fluctuant Course/Dx - Course Course Of Treatment: patient advised to apply warm compresses, start bactrim ds bid for 5 days, f/u with PCP - Diagnoses Provider Diagnoses: Cellulitis of right shoulder Discharge - Sign-Out/Discharge Documenting (check all that apply): Discharge/Admit/Transfer - Discharge Plan Condition: Good Disposition: HOME Prescriptions: Ibuprofen TAB* [Motrin TAB* 600 MG] 600 mg PO Q6H PRN #30 tab PRN Reason: Pain Sulfamethox/Trimethoprim DS* [Bactrim DS 800/160 TAB*] 1 tab PO DAILY 5 Days # 10 tab Patient Education Materials: Cellulitis (ED), Sulfamethoxazole/Trimethoprim ( By mouth), Ibuprofen (By mouth) Referrals: Leny Gaxiola CLINICAL SUPPORT ASSOCIATE [Primary Care Provider] - Additional Instructions: apply warm compresses, take bactrim DS 1 tab po bid for 5 days. Prescription correction with pharmacy which was transmitted as daily dose. fu with PCP - Billing Disposition and Condition Condition: GOOD Disposition: Home Images Front/Back of Body, Lg (Stewart): 1 - indurated erythematous area approx 4cm x 3cm in diameter with central scab and dry d/c
== END 2018-04-15 12:04 | disposition home or self-care (01) ==
LOC: UCEAST 10:35
DX: L03.113 Cellulitis of right upper limb (principal); F90.9 Attention-deficit hyperactivity disorder, unspecified type; F17.210 Nicotine dependence, cigarettes, uncomplicated
CPT/HCPCS: 99212; G0463

== ENCOUNTER 2018-05-22 10:19 | Emergency (ER) | payer BC ==
[2018-05-22 11:39] VITALS: BP 124/90
--- NOTE | 2018-05-22 11:48 | UC ---
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 Pt states that she has worsening pain with ambulation. - History of Current Complaint Chief Complaint: UCLowerExtremity Stated Complaint: LEFT LEG COMPLAINT Time Seen by Provider: 05/22/18 11:39 Hx Obtained From: Patient Hx Last Menstrual Period: 05/15/18 ?: No Onset/Duration: Gradual Onset, Lasting Days, Still Present Severity Initially: Mild Severity Currently: Moderate Pain Intensity: 5 Aggravating Factor(s): Standing, Ambulation Alleviating Factor(s): Rest, Elevation Able to Bear Weight: Yes - minimal - Risk Factors Gout Risk Factors: Obesity DVT Risk Factors: Negative Septic Arthritis Risk Factor: Negative - Allergies/Home Medications Allergies/Adverse Reactions: Allergies Allergy/AdvReac Type Severity Reaction Status Date / Time No Known Allergies Allergy Verified 05/22/18 11:32 Home Medications: Home Medications Ibuprofen TAB* [Advil TAB*] 800 mg PO Q6H PRN 05/22/18 [History Confirmed ] PMH/Surg Hx/FS Hx/Imm Hx Previously Healthy: Yes - Surgical History Surgical History: Yes Surgery Procedure, Year, and Place: L ear(mastoid); ; TONSILECTOMY - Family History Known Family History: Positive: None, Cardiac Disease, Other - lupus Negative: Hypertension, Diabetes, Respiratory Disease, Blood Disorder - Social History Occupation: Employed Full-time Lives: With Family Alcohol Use: Rare Substance Use Type: None Smoking Status (MU): Heavy Every Day Tobacco Smoker Type: Cigarettes Amount Used/How Often: 1 PPD Length of Time of Smoking/Using Tobacco: 20 Years Have You Smoked in the Last Year: Yes When Did the Patient Quit Smoking/Using Tobacco: about a month, uses [employer] Household Exposure Type: Cigarettes - Immunization History Most Recent Influenza Vaccination: Not the 2016/2016 Season Review of Systems Constitutional: Negative Skin: Negative Eyes: Negative ENT: Negative Respiratory: Negative Cardiovascular: Negative Gastrointestinal: Negative Genitourinary: Negative Motor: Negative, Decreased ROM - pain Neurovascular: Negative Musculoskeletal: Arthralgia - left knee, Decreased ROM - pain with ROM left knee , Myalgia - left uppr thigh Neurological: Negative Psychological: Negative Is Patient Immunocompromised?: No All Other Systems Reviewed And Are Negative: Yes Physical Exam Triage Information Reviewed: Yes Appearance: Pain Distress Vital Signs: Initial Vital Signs Temp 99.1 F 05/22/18 11:34 Pulse 101 05/22/18 11:34 Resp 14 05/22/18 11:34 BP 124/90 05/22/18 11:34 Pulse Ox 99 05/22/18 11:34 Vital Signs Reviewed: Yes Eye Exam: Normal ENT Exam: Normal ENT: Positive: Hearing grossly normal Dental Exam: Normal Neck exam: Normal Respiratory: Positive: No respiratory distress Musculoskeletal Exam: Other Musculoskeletal: Positive: ROM Limited @ - pain with ROm left knee, left lateral hamstring tenderness Neurological Exam: Normal Psychological Exam: Normal Skin Exam: Normal Lower Extremity Course/Dx - Differential Dx/Diagnosis Differential Diagnosis/HQI/PQRI: Sprain, Strain Provider Diagnoses: left hamstring strain. left knee pain Discharge - Sign-Out/Discharge Documenting (check all that apply): Patient Departure - Discharge Plan Condition: Stable Disposition: HOME Patient Education Materials: Hamstring Injury (ED), R.I.C.E. Treatment (ED), Leg Pain (ED), Hamstring Exercises (ED) Forms: *Work Release Referrals: Jarett Mcrae MD [Medical Doctor] - As Soon As Possible Leny Gaxiola NP [Primary Care Provider] - If Needed - Billing Disposition and Condition Condition: STABLE Disposition: Home
== END 2018-05-22 11:58 | disposition home or self-care (01) ==
LOC: UCCORT 10:19
DX: S76.912A Strain of unspecified muscles, fascia and tendons at thigh level, left thigh, initial encounter (principal); M25.562 Pain in left knee; X58.XXXA Exposure to other specified factors, initial encounter; Y93.61 Activity, american tackle football; Y92.9 Unspecified place or not applicable
CPT/HCPCS: 99211; G0463

== ENCOUNTER 2018-09-13 14:10 | Emergency (ER) | payer BC ==
[2018-09-13 14:29] VITALS: BP 136/94
[2018-09-13] MEDS ORDERED: Ipratropium 0.5MG/2.5ML NEB* 0.5 MG/2.5 ML NEB.SOLN INH ONE (15:21)
[2018-09-13] MEDS ORDERED: Albuterol 2.5 MG/3 ML NEB.SOL* (0.083%) INH ONE (15:21)
[2018-09-13] MEDS ORDERED: Albuterol HFA INHALER* 8 gm MDI INH ONE (15:49)
[2018-09-13] MEDS ORDERED: predniSONE TAB* 20 MG PO ONE (15:49)
--- NOTE | 2018-09-13 15:49 | UC ---
Respiratory Complaint HPI - HPI Summary HPI Summary: 33 yo female with left otalgia and otorrhea Hx chronic perf onset x days also cough and wheezing chest tightness no cp or sob - History of Current Complaint Chief Complaint: UCRespiratory Stated Complaint: L EAR DRAINAGE,CHEST DISCOMFORT Time Seen by Provider: 09/13/18 15:16 Hx Obtained From: Patient Hx Last Menstrual Period: 05/15/18 Onset/Duration: Sudden Onset Timing: Constant Severity Initially: Mild Severity Currently: Moderate Pain Intensity: 6 Pain Scale Used: 0-10 Numeric Character: Cough: Nonproductive Aggravating Factors: Exertion, Deep Breaths Alleviating Factors: Nothing Associated Signs And Symptoms: Positive: Wheezing - Allergies/Home Medications Allergies/Adverse Reactions: Allergies Allergy/AdvReac Type Severity Reaction Status Date / Time No Known Allergies Allergy Verified 09/13/18 14:29 PMH/Surg Hx/FS Hx/Imm Hx Previously Healthy: Yes - Surgical History Surgical History: Yes Surgery Procedure, Year, and Place: L EAR DRAINAGE AGE 4 ;. ;. TONSILECTOMY ; - Family History Known Family History: Positive: None, Cardiac Disease, Other - lupus Negative: Hypertension, Diabetes, Respiratory Disease, Blood Disorder - Social History Alcohol Use: Rare Substance Use Type: None Smoking Status (MU): Light Every Day Tobacco Smoker Type: Cigarettes Amount Used/How Often: 1 PPD Length of Time of Smoking/Using Tobacco: 20 Years Have You Smoked in the Last Year: Yes When Did the Patient Quit Smoking/Using Tobacco: about a month, uses [employer] Household Exposure Type: Cigarettes - Immunization History Most Recent Influenza Vaccination: Not the 2015/2016 Season Review of Systems Constitutional: Negative Skin: Negative Eyes: Negative ENT: Ear Ache, Nasal Discharge Respiratory: Cough, Other - chest tightness Cardiovascular: Negative Gastrointestinal: Negative Genitourinary: Negative Motor: Negative Neurovascular: Negative Musculoskeletal: Negative Neurological: Negative Psychological: Negative All Other Systems Reviewed And Are Negative: Yes Physical Exam Triage Information Reviewed: Yes Appearance: Well-Appearing, No Pain Distress, Well-Nourished Vital Signs: Initial Vital Signs Temp 98.6 F 09/13/18 14:23 Pulse 108 09/13/18 14:23 Resp 18 09/13/18 14:23 BP 136/94 09/13/18 14:23 Pulse Ox 100 09/13/18 14:23 Eyes: Positive: Conjunctiva Clear ENT: Positive: Nasal congestion, Nasal drainage. Negative: Hearing grossly normal, TMs normal - left tm perf with otorrhea, Tonsillar swelling, Tonsillar exudate, Muffled voice, Hoarse voice, Sinus tenderness, Uvula midline Neck: Positive: Supple, Nontender, No Lymphadenopathy Respiratory: Positive: Normal breath sounds, No respiratory distress, Wheezing Bowel Sounds: Positive: Present Musculoskeletal: Positive: ROM Intact, No Edema Neurological Exam: Normal Psychological Exam: Normal Skin Exam: Normal UC Diagnostic Evaluation - Laboratory O2 Sat by Pulse Oximetry: 100 - normal/not hypoxic Respiratory Course/Dx - Course Course Of Treatment: improved after neb - Differential Dx/Diagnosis Provider Diagnoses: left suppurative OM with perf. bronchospasm Discharge - Sign-Out/Discharge Documenting (check all that apply): Patient Departure All imaging exams completed and their final reports reviewed: No Studies - Discharge Plan Condition: Stable Disposition: HOME Prescriptions: Cephalexin CAP* [Keflex 500 CAP*] 500 mg PO QID #28 cap Ciproflox/Dexameth OTIC.SUSP* [Ciprodex OTIC.SUSP*] 4 drop .SEE ORDER BID 7 Days #1 btl predniSONE [Deltasone 20 MG TAB] 40 mg PO DAILY #10 tab Patient Education Materials: Ear Infection (ED), Bronchospasm (ED) Forms: *Work Release Referrals: Leny Gaxiola NP [Primary Care Provider] - 5 Days (if not better) - Billing Disposition and Condition Condition: STABLE Disposition: Home
== END 2018-09-13 16:08 | disposition home or self-care (01) ==
LOC: UCEAST 14:10
DX: H66.42 Suppurative otitis media, unspecified, left ear (principal); H72.92 Unspecified perforation of tympanic membrane, left ear; J98.01 Acute bronchospasm; F17.210 Nicotine dependence, cigarettes, uncomplicated
CPT/HCPCS: 99212; A9270-GY; G0463; J7512

== ENCOUNTER 2018-09-15 01:41 | Emergency (ER) | payer BC ==
[2018-09-15] MEDS ORDERED: NS 0.9% 1000 ML* 1,000 ML IV ONE (02:23)
[2018-09-15] MEDS ORDERED: fentaNYL* 50 MCG/ML 2 ML VIAL (100 MCG VIAL) IV SLOW PU ONE (02:25)
[2018-09-15] MEDS ORDERED: Metoclopramide IV* 5 MG/ML 2 ML VIAL IV SLOW PU ONE (02:26)
--- NOTE | 2018-09-15 02:28 | ED ---
Abdominal Pain/Female - HPI Summary HPI Summary: This pt is a 33 y/o female presenting to [facility] c/o epigastric pain since 00:30 today. Pt reports her pain woke her up today. She describes epigastric pain going through her back, described as stabbing pain. She additionally notes nausea and vomitingx1. Denies fever, chills, SOB, diaphoresis, dizziness. She states she had hot dog, vegetables for dinner and brownie for dessert last night. Pt reports she has never had this pain in the past. Denies any hx of abdominal surgeries. Pt only takes Adderall. Denies alcohol use. - History of Current Complaint Chief Complaint: EDAbdPain Stated Complaint: CHEST/ABD PAIN Time Seen by Provider: 09/15/18 02:15 Hx Obtained From: Patient Hx Last Menstrual Period: 05/15/18 Onset/Duration: Lasting Hours, Still Present Timing: Hours Severity Currently: Severe Pain Intensity: 8 Pain Scale Used: 0-10 Numeric Location: Epigastric Radiates: Yes Radiates to: Back Character: Other: - stabbing Aggravating Factor(s): Nothing Alleviating Factor(s): Nothing Associated Signs and Symptoms: Positive: Nausea, Vomiting. Negative: Diaphoresis, Fever, Dizzy, Other: - SOB Allergies/Adverse Reactions: Allergies Allergy/AdvReac Type Severity Reaction Status Date / Time No Known Allergies Allergy Verified 09/15/18 01:50 PMH/Surg Hx/FS Hx/Imm Hx Endocrine/Hematology History: Denies: Hx Diabetes, Hx Thyroid Disease Cardiovascular History: Denies: Hx Hypertension, Hx Pacemaker/ICD Respiratory History: Reports: Hx Asthma - for a few years now; occasionally uses an inhaler Denies: Hx Chronic Obstructive Pulmonary Disease (COPD) GI History: Denies: Hx Ulcer History: Denies: Hx Renal Disease Sensory History: Denies: Hx Hearing Aid Psychiatric History: Reports: Hx Attention Deficit Hyperactivity Disorder, Hx Depression Denies: Hx Panic Disorder - Surgical History Surgery Procedure, Year, and Place: L EAR DRAINAGE AGE 4 ;. ;. TONSILECTOMY ; - Immunization History Date of Tetanus Vaccine: Unknown Infectious Disease History: No Infectious Disease History: Denies: Hx Clostridium Difficile, Hx Hepatitis, Hx Human Immunodeficiency Virus (HIV), Hx of Known/Suspected MRSA, Hx Shingles, Hx Tuberculosis, Hx Known/ Suspected VRE, Hx Known/Suspected VRSA, History Other Infectious Disease, Traveled Outside the [place] in Last 30 Days - Family History Known Family History: Positive: Cardiac Disease, Other - lupus Negative: Hypertension, Diabetes, Respiratory Disease, Blood Disorder - Social History Alcohol Use: Rare Substance Use Type: Reports: None Hx Tobacco Use: Yes Smoking Status (MU): Light Every Day Tobacco Smoker Type: Cigarettes Amount Used/How Often: 1 PPD Length of Time of Smoking/Using Tobacco: 20 Years Have You Smoked in the Last Year: Yes Review of Systems Negative: Fever, Chills, Skin Diaphoresis Negative: Shortness Of Breath Positive: Abdominal Pain, Vomiting, Nausea Positive: no symptoms reported Neurological: Other - NEG: dizziness All Other Systems Reviewed And Are Negative: Yes Physical Exam - Summary Physical Exam Summary: VITAL SIGNS: Reviewed. GENERAL: Patient is a well-developed and nourished female. Patient is not in any acute respiratory distress. HEAD AND FACE: No signs of trauma. No ecchymosis, hematomas or skull depressions. No sinus tenderness. EYES: PERRLA, EOMI x 2, No injected conjunctiva, no nystagmus. EARS: Hearing grossly intact. Ear canals and tympanic membranes are within normal limits. MOUTH: Oropharynx within normal limits. NECK: Supple, trachea is midline, no adenopathy, no JVD, no carotid bruit, no c- spine tenderness, neck with full ROM. CHEST: Symmetric, no tenderness at palpation LUNGS: Clear to auscultation bilaterally. No wheezing or crackles. CVS: Regular rate and rhythm, S1 and S2 present, no murmurs or gallops appreciated. ABDOMEN: Soft, epigastric and RUQ tenderness. No signs of distention. No rebound no guarding, and no masses palpated. Bowel sounds are normal. EXTREMITIES: FROM in all major joints, no edema, no cyanosis or clubbing. NEURO: Alert and oriented x 3. No acute neurological deficits. Speech is normal and follows commands. SKIN: Dry and warm Triage Information Reviewed: Yes Vital Signs On Initial Exam: Initial Vitals Temp Pulse Resp BP Pulse Ox 98.0 F 94 20 104/72 99 09/15/18 01:45 09/15/18 01:45 09/15/18 01:45 09/15/18 01:45 09/15/18 01:45 Vital Signs Reviewed: Yes Diagnostics - Vital Signs Vital Signs Temp Pulse Resp BP Pulse Ox 09/15/18 02:10 85 99 09/15/18 02:08 84 160/109 99 09/15/18 01:45 98.0 F 94 20 104/72 99 - Laboratory Result Diagrams: 09/15/18 02:34 09/15/18 02:34 Lab Statement: Any lab studies that have been ordered have been reviewed, and results considered in the medical decision making process. - EKG 01:53 Cardiac Rate: NL - at 83 bpm EKG Rhythm: Sinus Rhythm Summary of EKG Findings: Normal axis. Normal interval. No ischemic changes Re-Evaluation - Re-Evaluation First Eval Re-Evaluation Time: 03:20 Change: Improved Comment: Pt feels better after medications. I reviewed the lab results with her. Pt is to follow up with her PMD tomorrow for an ultrasound to rule out gallstones. Abdominal Pain Fem Course/Dx - Course Course Of Treatment: Pt is a 33 y/o female who presents to the ED for epigastric pain since 00:30 today. Pt reports her pain woke her up today. She describes epigastric pain going through her back, described as stabbing pain. She additionally notes nausea and vomitingx1. Denies fever, chills, SOB, diaphoresis, dizziness. She states she had hot dog, vegetables for dinner and brownie for dessert last night. Test results without significant abnormalities except for WBC of 12.9. In the ED course the pt was given IV fluids, Reglan, Fentanyl. Pt reports feeling better after these medications. I reviewed the results with the pt. Pt has normal liver function tests, white count is high because pt is taking prednisone. She will be discharged home with outpatient follow up with her PMD tomorrow for an ultrasound to rule out gallstones. She understands and agrees. Pt will be given prescriptions for Reglan and Percocet. She is instructed to return to the ED for any worsening or new symptoms. - Diagnoses Provider Diagnoses: Epigastric pain Discharge - Sign-Out/Discharge Documenting (check all that apply): Patient Departure - Discharge home - Discharge Plan Condition: Stable Disposition: HOME Prescriptions: Metoclopramide TAB* [Reglan TAB*] 10 mg PO Q6H PRN #20 tab PRN Reason: Nausea/Vomiting oxyCODONE/Acetamin 5/325 MG* [Percocet 5/325 TAB*] 1 tab PO Q6H PRN #10 tab MDD 4 PRN Reason: Pain Patient Education Materials: Gallstones (ED), Epigastric Pain (ED) Referrals: Leny Gaxiola NP [Primary Care Provider] - Additional Instructions: Please follow up with your primary care provider tomorrow to get an ultrasound to rule out gallstones. RETURN TO EMERGENCY DEPARTMENT FOR ANY NEW OR WORSENING SYMPTOMS. - Attestation Statements Document Initiated by Scribe: Yes Documenting Scribe: Michelle Horne Provider For Whom Scribe is Documenting (Include Credential): Mindi Langley MD Scribe Attestation: [email or web address], scribed for Mindi Langley MD on 09/15/18 at 0327.
[2018-09-15 02:42] LABS: ABS Basophils 0.1 10^3/ul (0-0.2); ABS Eosinophils 0.2 10^3/ul (0-0.6); ABS Lymphocytes 2.5 10^3/ul (1.0-4.8); ABS Monocytes 1.2 10^3/ul (0-0.8); ABS Neutrophils 8.9 10^3/ul (1.5-7.7); ABS Nucleated RBC 0 10^3/ul; Eosinophil % 1.8 % (0-6); Hematocrit 44 % (35-47); Hemoglobin 14.6 g/dl (12.0-16.0); Lymphocyte % 19.1 % (25-47); Mean Corpuscular HGB Conc 34 g/dl (31-36); Mean Corpuscular Hemoglobin 30 pg (27-31); Mean Corpuscular Volume 88 fL (80-97); Mean Platelet Volume 9.2 fL (7.4-10.4); Nucleated Red Blood Cells % 0.1; Platelet Count 259 10^3/ul (150-450); Red Blood Count 4.95 10^6/ul (4.00-5.40); Red Cell Distribution Width 14 % (10.5-15); White Blood Count 12.9 10^3/ul (3.5-10.8)
[2018-09-15 02:49] LABS: INR 0.89 (0.77-1.02)
[2018-09-15 02:58] LABS: EGFR Non-African American 82.8 (>60)
[2018-09-15 03:36] VITALS: BP 126/76
== END 2018-09-15 03:34 | disposition home or self-care (01) ==
LOC: ED 01:41
DX: R10.13 Epigastric pain (principal); R11.2 Nausea with vomiting, unspecified; J45.909 Unspecified asthma, uncomplicated; F17.210 Nicotine dependence, cigarettes, uncomplicated
CPT/HCPCS: 36415; 80053; 82150; 83690; 83735; 84702; 85025; 85610; 85730; 86140; 93005; 96374; 96375; 99283; J2765; J3010

== ENCOUNTER 2018-10-24 12:05 | Emergency (ER) | payer BC ==
[2018-10-24 12:14] VITALS: BP 143/95
--- NOTE | 2018-10-24 13:19 | UC ---
Respiratory Complaint HPI - HPI Summary HPI Summary: 33 y/o female presents to the urgent care c/o productive cough w/ green phlegm for the past month. Pt reports she was treated for bronchitis about 1 month ago and symptoms have worsen the past week w/ wheezing, SOB , chills and fever. Pt has been using her albuterol inhaler w/o any improvement. She has been coughing so much at night time that her ribs hurt. Pt has taken Mucinex PO w/o any improvement of cough. This morning she did a nebulizer Tx her mother has and she felt better. Pt denies COLON, dizziness, chest pain, abdominal pain, N/ v/d. - History of Current Complaint Chief Complaint: UCRespiratory Stated Complaint: CHEST CONGESTION Time Seen by Provider: 10/24/18 12:59 Hx Obtained From: Patient Hx Last Menstrual Period: 10/16/18 ?: No - Pt declines test Onset/Duration: Gradual Onset, Lasting Weeks - 4 weeks, Still Present, Worse Since - 1 week Timing: Intermittent Episodes Severity Initially: Mild Severity Currently: Moderate Pain Intensity: 7 Pain Scale Used: 0-10 Numeric Character: Cough: Productive, Sputum Description: - green Aggravating Factors: Recumbent Position Alleviating Factors: Bronchodilator, OTC Meds Associated Signs And Symptoms: Positive: Dyspnea, Chills, Wheezing, URI, Nasal Congestion, Sinus Discomfort - Risk Factors Pulmonary Embolism Risk Factors: Negative Cardiac Risk Factors: Negative Pseudomonas Risk Factors: Negative Tuberculosis Risk Factors: Negative - Allergies/Home Medications Allergies/Adverse Reactions: Allergies Allergy/AdvReac Type Severity Reaction Status Date / Time No Known Allergies Allergy Verified 10/24/18 12:14 PMH/Surg Hx/FS Hx/Imm Hx Previously Healthy: Yes Respiratory History: Asthma Psychological History: Anxiety - Surgical History Surgical History: Yes Surgery Procedure, Year, and Place: L EAR DRAINAGE AGE 4 ;. ;. TONSILECTOMY ; - Family History Known Family History: Positive: Cardiac Disease, Other - lupus Negative: Hypertension, Diabetes, Respiratory Disease, Blood Disorder - Social History Occupation: Employed Full-time Lives: With Family Alcohol Use: Rare Substance Use Type: None Smoking Status (MU): Light Every Day Tobacco Smoker Type: Cigarettes Amount Used/How Often: 1 PPD Length of Time of Smoking/Using Tobacco: 20 Years Have You Smoked in the Last Year: Yes When Did the Patient Quit Smoking/Using Tobacco: about a month, uses [employer] Household Exposure Type: Cigarettes - Immunization History Most Recent Influenza Vaccination: Not the 2016/2016 Season Review of Systems All Other Systems Reviewed And Are Negative: Yes Constitutional: Positive: Chills, Other - body aches Skin: Positive: Negative Eyes: Positive: Negative ENT: Positive: Nasal Discharge - green, Sinus Congestion Respiratory: Positive: Shortness Of Breath, Cough - productive w/ green phlegm, Other - wheezing Cardiovascular: Positive: Negative Gastrointestinal: Positive: Negative Genitourinary: Positive: Negative Motor: Positive: Negative Neurovascular: Positive: Negative Musculoskeletal: Positive: Negative Neurological: Positive: Negative Psychological: Positive: Negative Is Patient Immunocompromised?: No Physical Exam - Summary Physical Exam Summary: Vital Signs Reviewed: Yes General: well developed, well nourished female sitting in the examining table w/ o any apparent distress Eyes: Positive: Conjunctiva Clear - PERRLA, EOMI, fundi grossly normal ENT: Positive: Normal ENT inspection, Hearing grossly normal, Pharynx normal, Nasal congestion - edematous and erythematous nasal mucosa, Nasal drainage - yellowish drainage, TMs normal. Negative: Tonsillar swelling, Tonsillar exudate Neck: Positive: Supple, Nontender, No Lymphadenopathy Respiratory: no orthopnea or dyspnea. Able to speak in full sentences, no retractions or accessory muscle use, no tripod position, stridor, or head bobbing. Positive breath sounds bilaterally. diffuse scattered wheezing and rhonchi on b/L lungs, no crackles or rales. Cardiovascular: Positive: RRR, No Murmur, Pulses Normal, Brisk Capillary Refill Abdomen Description: Positive: Nontender, No Organomegaly, Soft. Negative: CVA Tenderness (R), CVA Tenderness (L) Bowel Sounds: Positive: Present Musculoskeletal Exam: Normal Musculoskeletal: Positive: Strength Intact, ROM Intact, No Edema Neurological Exam: Normal Psychological Exam: Normal Skin Exam: Normal Triage Information Reviewed: Yes Vital Signs: Initial Vital Signs Temp 97.8 F 10/24/18 12:11 Pulse 115 10/24/18 12:11 Resp 18 10/24/18 12:11 BP 143/95 10/24/18 12:11 Pulse Ox 99 10/24/18 12:11 Diagnostic Evaluation - Laboratory O2 Sat by Pulse Oximetry: 99 Respiratory Course/Dx - Course Course Of Treatment: 33 y/o female presents to the urgent care c/o productive cough w/ green phlegm for the past month. Pt reports she was treated for bronchitis about 1 month ago and symptoms have worsen the past week w/ wheezing, SOB , chills and fever. Pt has been using her albuterol inhaler w/o any improvement. She has been coughing so much at night time that her ribs hurt. Pt has taken Mucinex PO w/o any improvement of cough. This morning she did a nebulizer Tx her mother has and she felt better. Pt denies COLON, dizziness, chest pain, abdominal pain, N/v/d. Hx obtained. Pt w/ scattered wheezes on bilaterally lungs, and mild rhonchi, good air entry B/L on examination. O2Sat: 99%. Chest X-ray ordere, Impression: no acute cardiopulmonary disease observed as per radiologist. Pt given Prednisone PO and Duoneb Treatment to alleviate symptoms. Pt tolerated well treatment and lungs improved,and wheezing resolved. Pt w/ Asthma exacerbation due to bronchitis. Patient prescribed doxyxycline PO , Prednisone taper dose, Albuterol neb. and Tessalon Tabs to alleviate symptoms as directed below. The patient was recommended to increase fluid intake. Take medications as recommended. Pt advised to returned to the clinic or f/u w/ her PCP if symptoms do not improve. All D/C instructions explained. Pt's BP is elevated today advised to decrease salt in diet, monitor BP and f/u with PCP for further management. Patient understood and agreed w/ plan of care. Pt left clinic hemodynamically stable , A&OX3 - Differential Dx/Diagnosis Differential Diagnosis/HQI/PQRI: Asthma, Bronchitis, Influenza, Laryngitis, Sinusitis, Other - pneumonia Provider Diagnosis: Asthma exacerbation, Elevated BP without diagnosis of hypertension, Acute bronchitis Discharge - Sign-Out/Discharge Documenting (check all that apply): Patient Departure - D/c home All imaging exams completed and their final reports reviewed: Yes - Discharge Plan Condition: Stable Disposition: HOME Prescriptions: Albuterol HFA INHALER* [Ventolin HFA Inhaler*] 1 - 2 puff INH Q6H PRN #1 mdi PRN Reason: Wheezing Albuterol/Ipratropium NEB.AMELIA* [Duoneb (Albuterol 2.5 MG/Ipratropium 0.5 MG)] 1 neb INH Q6H PRN #1 box PRN Reason: Wheezing Benzonatate CAP* [Tessalon 100 MG CAP*] 100 mg PO TID #21 cap DOXYcycline CAP(*) [DOXYcycline 100MG CAP(*)] 100 mg PO BID #14 cap predniSONE TAB* [Deltasone 20 MG TAB*] 20 mg PO DAILY #8 tab Patient Education Materials: Asthma (ED), Acute Bronchitis (ED) Forms: *Work Release Referrals: Leny Gaxiola NP [Primary Care Provider] - 2 Days Additional Instructions: 1- Take Prednisone PO taper dose as directed starting tomorrow. First loading dose given today. Take Doxyxycline PO as directed to alleviate symptoms 2-Use the Duoneb nebulizer treatment to alleviate SOB, and wheezing as directed . Increase fluid intake, rest and eat well. 3- Take Tessalon tabs PO to alleviate cough. 4- If symptoms do not improve or worsen or your develop SOB with fever and severe wheezing please go immediately to the ER further evaluation and treatment. 5- F/u with your PCP in 2-3 days for further management on your Asthma 6- Your BP is elevated today. please decrease salt in your diet, monitor BP and if it continues to be elevated please f/u with your PCP for further management - Billing Disposition and Condition Condition: STABLE Disposition: Home
[2018-10-24] MEDS ORDERED: predniSONE TAB* 20 MG PO ONE (13:26)
[2018-10-24] MEDS ORDERED: Albuterol/Ipratropium NEB.SOL* Albuterol 2.5 MG/Ipratropium 0.5 MG 3 ML INH ONE (13:26)
== END 2018-10-24 14:15 | disposition home or self-care (01) ==
LOC: UCEAST 12:05
DX: J45.901 Unspecified asthma with (acute) exacerbation (principal); R03.0 Elevated blood-pressure reading, without diagnosis of hypertension; J20.9 Acute bronchitis, unspecified; F17.210 Nicotine dependence, cigarettes, uncomplicated
CPT/HCPCS: 71046; 99212; A9270-GY; G0463; J7512

== ENCOUNTER 2019-04-12 08:16 | Emergency (ER) | payer BC ==
--- OUTSIDE RECORDS SUMMARY | 2019-04-12 08:24 | XMS REPORT | Continuity of Care Document ---
:1985 External Reference #:[id number] Author Name Chantelle Gaxiola NP Address [address] [place] [id number] Care Team Providers Name Role Phone Chantelle Gaxiola NP Care Team Information Tap Builder Unavailable Payers Date Identification Numbers Payment Provider Subscriber Effective: 2015 Policy Number: [id number] [facility] Ppo Jennifer Thomas PayID: [id number] [address] [address] [place] [phone] Family History Date Family Member(s) Observation Comments Father Good Health Mother Lupus Erythematosus First Daughter Good Health Social History Type Date Description Comments Sex Unknown Marital Status Single 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 Tobacco Use Start: Unknown currently smokes 1/2 Pack Daily Cigarette Use Pack Years - 10 ETOH Use Denies alcohol use Tobacco Use Start: Unknown Patient is a current smoker, smokes every day Recreational Drug Use Denies Drug Use Allergies, Adverse Reactions, Alerts Description No Known Drug Allergies Medications Active Medications SIG Qnty Indications Ordering Date Provider Levocetirizine 1 by mouth 90tabs Minor, 03/28/2019 Dihydrochloride every day Chantelle, INFRASTRUCTURE DEVELOPER 5mg Tablets Bupropion Hydrochloride 1 by mouth 60tabs Rickybanner, 12/27/2018 ER (SR) twice a day Chantelle, INFRASTRUCTURE DEVELOPER 150mg Tablets ER 12HR Amphetamine-Dextroamphet 1 by mouth 30caps Minor, 06/05/2018 ER every day Chantelle, INFRASTRUCTURE DEVELOPER 20mg Caps ER 24HR Amphetamine-Dextroamphet 1 by mouth at 30tabs Minor, 01/24/2018 amine noon Chantelle, INFRASTRUCTURE DEVELOPER 10mg Tablets Naproxen take two 60tabs M25.562 Rickybanner, 12/13/2017 500mg Tablets tablets loading Chantelle, INFRASTRUCTURE DEVELOPER dose then once by mouth twice a day as needed History Medications Bupropion HCL ER 1 by mouth twice 60tabs Chantelle Gaxiola, 12/26/2018 - (SR) a day INFRASTRUCTURE DEVELOPER 12/27/2018 150mg Tablets ER 12HR Bupropion HCL 1 by mouth once a 60tabs Chantelle Gaxiola, 11/30/2018 - day x 1 week then INFRASTRUCTURE DEVELOPER 12/26/2018 75mg Tablets twice a day Amphetamine-Dextro 1 tab by mouth in 30caps Chantelle Gaxiola, 12/13/2017 - amphet ER the in the INFRASTRUCTURE DEVELOPER 06/05/2018 10mg morning Caps ER 24HR Ofloxacin (Otic) 5 drops affected QS H60.312 Chantelle Gaxiola, 12/13/2017 - ear every day x 7 INFRASTRUCTURE DEVELOPER 11/30/2018 0.3% Solution days Immunizations CPT Code Status Date Vaccine Lot # [id number] Refused 08/25/2018 Tdap (Adacel) Ages 7 And Above Only [id number] Refused 08/25/2018 Influenza Vac, Quadrivalent, Split, 0.5mL Dosage, Im Use [id number] Refused 12/13/2017 Influenza Vac, Quadrivalent, Split, 0.5mL Dosage, Im Use Vital Signs Date Vital Result Comment 03/28/2019 2:40pm Body Temperature 98.2 F Weight 181.00 lb Heart Rate 120 /min BP Systolic 124 mmHg BP Diastolic 78 mmHg Respiratory Rate 17 /min Height 61 inches 5'1" O2 % BldC Oximetry 99 % BMI (Body Mass Index) 34.2 kg/m2 08/25/2018 12:24pm Body Temperature 98.2 F Weight 174.00 lb Heart Rate 105 /min BP Systolic 128 mmHg BP Diastolic 82 mmHg Respiratory Rate 17 /min Height 61 inches 5'1" BMI (Body Mass Index) 32.9 kg/m2 06/05/2018 2:10pm Weight 176.00 lb BP Systolic 132 mmHg BP Diastolic 88 mmHg Height 62 inches 5'2" BMI (Body Mass Index) 32.2 kg/m2 02/24/2018 10:30am Body Temperature 98.1 F Weight 182.00 lb BP Systolic 126 mmHg BP Diastolic 76 mmHg Height 62 inches 5'2" BMI (Body Mass Index) 33.3 kg/m2 01/24/2018 11:50am Weight 178.00 lb BP Systolic 124 mmHg BP Diastolic 76 mmHg Height 62 inches 5'2" BMI (Body Mass Index) 32.6 kg/m2 12/30/2017 11:13am Weight 183.00 lb BP Systolic 124 mmHg BP Diastolic 86 mmHg Height 62 inches 5'2" BMI (Body Mass Index) 33.5 kg/m2 12/13/2017 12:05pm Body Temperature 98.1 F Weight 181.00 lb Heart Rate 120 /min BP Systolic 140 mmHg BP Diastolic 98 mmHg Height 62 inches 5'2" BMI (Body Mass Index) 33.1 kg/m2 Results Test Date Facility Test Result H/L Range Note Drugs of Abuse 11/30/2018 [facility] Amphetamines,U POSITIVE Abnormal <1000 ng/mL w/o THC-FCMG rine Barbiturates,Urine NEGATIVE <200 ng/mL Benzodiazepines, Urine NEGATIVE <200 ng/mL Bupernorphrine/Norbu,Urine NEGATIVE <10 ng/mL Cocaine Metabolites,Urine NEGATIVE <300 ng/mL Methadone,Urine NEGATIVE <300 ng/mL Opiates,Urine NEGATIVE <300 ng/mL Oxycodone,Urine NEGATIVE <100 ng/mL Phencyclidine,Urine NEGATIVE <25 ng/mL Drugs Abuse/Etoh Urn-RL 06/05/2018 [facility] Amphetamines Positive 1 Barbiturates Negative 2 Benzodiazepines Negative 3 Cocaine Negative 4 Opiates Negative 5 Phencyclidine Negative 6 Marijuana Negative 7 Alcohol Negative 8 Creatinine 155.6 9 Cdasu 7A Comments See Note 10 Urine Amphetamines Conf 06/05/2018 [facility] Amphetamine Urine >5000 11 [phone] Methamphetamine Ur <200 12 Methylenedioxyamphet <200 13 Methylenedioxymetham <200 14 Methylenedioxyethyl <200 15 Drugs Abuse/Etoh Urn-RL 01/24/2018 [facility] Amphetamines Positive 16 Barbiturates Negative 17 Benzodiazepines Negative 18 Cocaine Negative 19 Opiates Negative 20 Phencyclidine Negative 21 Marijuana Negative 22 Alcohol Negative 23 Creatinine 250.4 24 Cdasu 7A Comments See Note 25 Urine Amphetamines Conf 01/24/2018 [facility] Amphetamine Urine >5000 26 [phone] Methamphetamine Ur <200 27 Methylenedioxyamphet <200 28 Methylenedioxymetham <200 29 Methylenedioxyethyl <200 30 Urine Amphetamines Conf 12/13/2017 [facility] Amphetamine Urine >5000 31 [phone] Methamphetamine Ur <200 32 Methylenedioxyamphet <200 33 Methylenedioxymetham <200 34 Methylenedioxyethyl <200 35 Drugs Abuse/Etoh Urn-RL 12/13/2017 [facility] Amphetamines Positive 36 Barbiturates Negative 37 Benzodiazepines Negative 38 Cocaine Negative 39 Opiates Negative 40 Phencyclidine Negative 41 Marijuana Negative 42 Alcohol Negative 43 Creatinine 197.3 44 Cdasu 7A Comments See Note 45 Basic (BMP) 12/13/2017 [facility] Sodium 138 mmol/L 135-146 46 Potassium 4.2 mmol/L 3.5-5.2 Chloride# 102 mmol/L 97-110 47 Carbon Dioxide 27 mmol/L 24-34 Glucose 121 mg/dL High 70-105 BUN 7 mg/dL 6-26 Creatinine 0.8 mg/dL 0.5-1.4 Calcium 9.9 mg/dL 8.5-10.2 Non [facility]lette Egfr >60 >60 48 Arlette Egfr >60 >60 49 Anion Gap 9 mmol/L 5-15 50 Laboratory test 12/13/2017 [facility] Vitamin D 25 22 ng/mL Low 30-100 51 finding Hydroxy Enedina Screen With 12/13/2017 [facility] Enedina Screen NEGATIVE Negative Reflex-FCMG dsDNA IgG 0.70 Negative 52 Laboratory test finding 12/13/2017 [facility] Uric Acid 5.6 mg/dL 2.6-7.6 Lyme Igm/Igg AB -RL 12/13/2017 [facility] Lyme Igm/Igg AB @ NEGATIVE (Neg) 53 Laboratory test finding 12/13/2017 [facility] CRP (C-Reactive) 0.30 mg/dL 0.00-0.75 Rheumatoid Factor <10.0 IU/mL 0.0-10.0 1 Positive Reference range: Cutoff 300 Unit: ng/mL If the screen is positive, then confirmation testing by mass spectrometry will be added. Additional charges will apply. 2 Negative Reference range: Cutoff 200 Unit: ng/mL 3 Negative Reference range: Cutoff 200 Unit: ng/mL 4 Negative Reference range: Cutoff 150 Unit: ng/mL 5 Negative Reference range: Cutoff 300 Unit: ng/mL 6 Negative Reference range: Cutoff 25 Unit: ng/mL 7 Negative Reference range: Cutoff 20 Unit: ng/mL 8 Negative Reference range: Cutoff 40 Unit: mg/dL 9 Reference range: 20.0 to 400.0 Unit: mg/dL 10 See Note INTERPRETIVE INFORMATION: Drug Panel 7A, [...] reported with the amphetamines results. Performed by [employer], [address] [facility] [id number] [facility], Rodrick Hills MD, Lab. Director Unless otherwise specified, testing performed by [facility] [employer] [address] [place] [address] 11 Unit: ng/mL Consistent with use of a [...] laboratory. Test developed and characteristics determined by [employer]. See Compliance Statement B: [employer]/ 12 Unit: ng/mL 13 Unit: ng/mL 14 Unit: ng/mL 15 Unit: ng/mL Performed by [employer], [address] [employer] [facility],[place] [id number] www[facility], Rodrick Hills MD, Lab. Director 16 Positive Reference range: Cutoff 300 Unit: ng/mL If the screen is positive, then confirmation testing by mass spectrometry will be added. Additional charges will apply. 17 Negative Reference range: Cutoff 200 Unit: ng/mL 18 Negative Reference range: Cutoff 200 Unit: ng/mL 19 Negative Reference range: Cutoff 150 Unit: ng/mL 20 Negative Reference range: Cutoff 300 Unit: ng/mL 21 Negative Reference range: Cutoff 25 Unit: ng/mL 22 Negative Reference range: Cutoff 20 Unit: ng/mL 23 Negative Reference range: Cutoff 40 Unit: mg/dL 24 Reference range: 20.0 to 400.0 Unit: mg/dL 25 See Note INTERPRETIVE INFORMATION: Drug Panel 7A, [...] reported with the amphetamines results. Performed by [employer], [address] [place] [id number] www[employer], Rodrick Hills MD, Lab. Director Unless otherwise specified, testing performed by [facility] [employer] [address] [place] [id number] 26 Unit: ng/mL Consistent with use of a [...] laboratory. Test developed and characteristics determined by [employer]. See Compliance Statement B: [employer] 27 Unit: ng/mL 28 Unit: ng/mL 29 Unit: ng/mL 30 Unit: ng/mL Performed by [employer], [address] [facility] [address] www[facility] [employer], Rodrick Hills MD, Lab. Director 31 Unit: ng/mL Consistent with use of a [...] laboratory. Test developed and characteristics determined by [employer]. See Compliance Statement B: [employer] 32 Unit: ng/mL 33 Unit: ng/mL 34 Unit: ng/mL 35 Unit: ng/mL Performed by [employer], [address] [facility] [place] [address] www[facility] [employer], Rodrick Hills MD, Lab. Director 36 Positive Reference range: Cutoff 300 Unit: ng/mL If the screen is positive, then confirmation testing by mass spectrometry will be added. Additional charges will apply. 37 Negative Reference range: Cutoff 200 Unit: ng/mL 38 Negative Reference range: Cutoff 200 Unit: ng/mL 39 Negative Reference range: Cutoff 150 Unit: ng/mL 40 Negative Reference range: Cutoff 300 Unit: ng/mL 41 Negative Reference range: Cutoff 25 Unit: ng/mL 42 Negative Reference range: Cutoff 20 Unit: ng/mL 43 Negative Reference range: Cutoff 40 Unit: mg/dL 44 Reference range: 20.0 to 400.0 Unit: mg/dL 45 See Note INTERPRETIVE INFORMATION: Drug Panel 7A, [...] reported with the amphetamines results. Performed by [employer], [address] [place] [id number] www[employer], Rodrick Hills MD, Lab. Director Unless otherwise specified, testing performed by [facility] [employer] [address] [place] [address] 46 Updated reference range on new analyzer 47 Updated reference range on new analyzer 48 Concerning GFR Guidelines: Normal function or mild [...] drugs that are excreted by the kidneys. 49 Concerning GFR Guidelines for Americans: Normal function or mild renal disease, if clinically at risk: >/=60 mL/min Moderately decreased: 30-59 Severely decreased: 15-29 Renal failure: <15 50 Updated Reference Range 51 Clinical Guidelines for recommended serum 25(OH)Vitamin D Deficient at less than 20 ng/mL Insufficient at 20 to <30 ng/mL Sufficient at 30-100 ng/mL Toxicity at greater than 100 ng/mL 52 Interpretation: <0.8 -9 IU/ml Negative 10-15 IU/ml Equivocal >15.0 IU/ml Positive 53 A Negative serologic test for Lyme Disease indicates no serologic evidence of infection with B burgdorferi at the time this specimen was collected. A repeat specimen should be collected in 2 to 4 weeks if clinically indicated. Unless otherwise specified, testing performed by [facility] [employer] [address] [place] [address] Encounters Type Date Location Provider Dx Diagnosis Office Visit 11/30/2018 Chantelle Roberto R41.840 Attention and 10:45a INFRASTRUCTURE DEVELOPER concentration deficit M25.562 Pain in LEFT knee R05 Cough Office Visit 08/25/2018 12:00p Chantelle Roberto R41.840 Attention and INFRASTRUCTURE DEVELOPER concentration deficit Z68.32 Body mass index (BMI) 32.0-32.9, adult Office Visit 06/05/2018 2:00p Chantelle Roberto R41.840 Attention and INFRASTRUCTURE DEVELOPER concentration deficit Z68.32 Body mass index (BMI) 32.0-32.9, adult Office Visit 02/24/2018 10:15a Chantelle Roberto, R41.840 Attention and INFRASTRUCTURE DEVELOPER concentration deficit Z68.33 Body mass index (BMI) 33.0-33.9, adult Office Visit 01/24/2018 11:30a Chantelle Roberto R41.840 Attention and INFRASTRUCTURE DEVELOPER concentration deficit Office Visit 12/30/2017 11:15a Chantelle Roberto R41.840 Attention and INFRASTRUCTURE DEVELOPER concentration deficit Office Visit 12/13/2017 12:00p Chantelle Roberto R41.840 Attention and INFRASTRUCTURE DEVELOPER concentration deficit M25.562 Pain in LEFT knee H60.312 Diffuse otitis externa, LEFT ear Plan of Treatment Future Appointment(s):04/30/2019 4:15 pm - Chantelle Gaxiola, INFRASTRUCTURE DEVELOPER at [place]2018 - Chantelle Gaxiola NPE66.9 Obesity, uslqakkkzycH82.840 Attention and concentration deficitComments:maintain current dgpxoV38.02 Central perforation of tympanic membrane, LEFT earFollow up:1 qunloA71.34 Body mass index (BMI) 34.0 -34.9, adultAllNew Medication:Levocetirizine Dihydrochloride 5 mg - 1 by mouth every day
--- OUTSIDE RECORDS SUMMARY | 2019-04-12 08:24 | XMS REPORT | Continuity of Care Document ---
:1985 External Reference #:[id number] Author Name Clari Cotto Care Team Providers Name Role Phone Tenzin Gaxiola MD Primary Care Physician Unavailable Payers Date Identification Numbers Payment Provider Subscriber Policy Number: [id number] [employer] Jennifer Thomas PayID: [id number] [address] [address] [place] [address] Onset: 2018 Policy Number: [id number] [facility] Name: laura# [phone] [address] [address] PayID: [place] [address] Problems Active Problems Provider Date Sprain of unspecified site of left knee, Dilip Dudley M.D. Onset: 2015 subsequent encounter Derangement of knee Amanda Edgar MD Onset: 06/06/2018 Family History Date Family Member(s) Observation Comments Mother Lupus Mother Cerebrovascular Accident (CVA) Mother Stroke Social History Type Date Description Comments Sex Unknown Marital Status Single Lives With Mother Occupation Currently Working [employer] ETOH Use Denies alcohol use Tobacco Use Start: Unknown Heavy tobacco smoker (more than 10 cigarettes/day) Recreational Drug Use Denies Drug Use Smoking Status Reviewed: 03/22/19 Heavy tobacco smoker (more than 10 cigarettes/day) Exercise Type/Frequency Exercises regularly Allergies, Adverse Reactions, Alerts Description No Known Drug Allergies Medications Active Medications SIG Qnty Indications Ordering Provider Date Naproxen 1 by mouth twice 60tabs M23.612 Jarett Mcrae MD 05/23/2018 500mg Tablets a day w food Adderall XR 1 by mouth every Unknown 10mg Caps day in am ER 24HR Adderall 1 po at hs Unknown 10mg Tablets Ibuprofen 200 400-600mg every Unknown 200mg 6 hours as Tablets needed for pain. History Medications Naprosyn 1 tab by mouth 60tabs S83.92xD Dilip Ledesmabev, 01/13/2016 - 500mg twice a day M.D. 05/19/2018 Tablets Naprosyn 1 tab by mouth 60tabs S83.92xD Dilip Perkinsolga, 01/13/2016 - 500mg twice a day M.D. 05/09/2018 Tablets Hydrocodone/Acetam 1 tab by mouth Unknown - inophen 500-300 MG every 6 - 8 05/08/2018 hours as needed Tylenol as needed Unknown - 325mg 05/18/2018 Tablets Medications Administered in Office Medication SIG Qnty Indications Ordering Provider Date Triamcinolone (Kenalog) Amanda Edgar MD 03/22/2019 Injection Vital Signs Date Vital Result Comment 03/22/2019 3:59pm Height 62 inches 5'2" Weight 174.00 lb Heart Rate 84 /min BP Systolic 128 mmHg BP Diastolic 72 mmHg Body Temperature 97.6 F Pain Level 2 BMI (Body Mass Index) 31.8 kg/m2 06/16/2018 11:11am Height 62 inches 5'2" Weight 176.00 lb Heart Rate 88 /min Respiratory Rate 18 /min Pain Level 0 BMI (Body Mass Index) 32.2 kg/m2 06/06/2018 8:31am Height 62 inches 5'2" Weight 176.00 lb Heart Rate 103 /min BP Systolic 131 mmHg BP Diastolic 83 mmHg Body Temperature 98.1 F Pain Level 5 BMI (Body Mass Index) 32.2 kg/m2 05/23/2018 9:44am Height 62 inches 5'2" Weight 175.00 lb BP Systolic Sitting 116 mmHg BP Diastolic Sitting 68 mmHg Respiratory Rate 16 /min Pain Level 7 with standing BMI (Body Mass Index) 32.0 kg/m2 01/13/2016 1:47pm Height 62 inches 5'2" Weight 180.00 lb Heart Rate 90 /min BP Systolic 120 mmHg BP Diastolic 90 mmHg BMI (Body Mass Index) 32.9 kg/m2 Procedures Date Code Description Status 03/09/2016 00793 EEG Recording Awake & Drowsy Completed Encounters Type Date Location Provider Dx Diagnosis Office Visit 06/16/2018 Orth[facility] Amanda Edgar, S83.512D Sprain of anterior 10:45a [facility] cruciate ligament of left knee, subs Office Visit 06/06/2018 Orthopedic Amanda Edgar, S83.512D Sprain of anterior 8:30a [facility] cruciate ligament of left knee, subs Office Visit 05/23/2018 Orthopedic Jarett Mcrae, M23.612 Oth spon disrupt 9:30a [facility] of anterior [place] cruciate ligament of left knee Office Visit 01/13/2016 [facility] Dud[facility], S83.92xD 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
[2019-04-12 08:39] VITALS: BP 129/75
[2019-04-12] MEDS ORDERED: Lidocaine 1% MPF wEPI 200,000* 30 ML SDV INJ ONE (08:50)
--- NOTE | 2019-04-12 09:12 | UC ---
Back Pain HPI - HPI Summary HPI Summary: 33-year-old female presents 1 day after twisting injury when she slipped on wet steps. She injured her back and now is having low thoracic area and upper lumbar discomfort. She denies any radiation of pain to her legs. No difficulty with bowel or bladder. Ambulatory. No other injuries. Did not fall. - History of Current Complaint Chief Complaint: UCBackPain Stated Complaint: LOWER BACK PAIN Time Seen by Provider: 04/12/19 08:46 Hx Obtained From: Patient Hx Last Menstrual Period: 04/05/19 Pain Intensity: 7 - Allergies/Home Medications Allergies/Adverse Reactions: Allergies Allergy/AdvReac Type Severity Reaction Status Date / Time No Known Allergies Allergy Verified 04/12/19 08:30 Home Medications: Home Medications Dextroamphetamine/Amphetamine [Adderall 10 mg-] 1 tab PO 1200 04/12/19 [History Confirmed 04/12/19] Naproxen [Naproxen 250 mg tab] 250 mg PO ONCE 04/12/19 [History Confirmed ] PMH/Surg Hx/FS Hx/Imm Hx Previously Healthy: Yes - Surgical History Surgical History: Yes Surgery Procedure, Year, and Place: mastoiditis, L EAR DRAINAGE AGE 4 ;. C- SECTION ;. TONSILECTOMY ; - Family History Known Family History: Positive: None, Cardiac Disease, Other - lupus Negative: Hypertension, Diabetes, Respiratory Disease, Blood Disorder - Social History Occupation: Employed Full-time Alcohol Use: Rare Substance Use Type: None Smoking Status (MU): Light Every Day Tobacco Smoker Type: Cigarettes Amount Used/How Often: 1 PPD Length of Time of Smoking/Using Tobacco: 20 Years Have You Smoked in the Last Year: Yes When Did the Patient Quit Smoking/Using Tobacco: about a month, uses [employer] Household Exposure Type: Cigarettes - Immunization History Most Recent Influenza Vaccination: Not the 2016/2016 Season Review of Systems All Other Systems Reviewed And Are Negative: Yes Motor: Positive: Negative Neurovascular: Positive: Negative Musculoskeletal: Positive: Decreased ROM, Myalgia. Negative: Arthralgia, Edema Physical Exam Triage Information Reviewed: Yes Appearance: Well-Appearing, Well-Nourished, Pain Distress - Minimal Vital Signs: Initial Vital Signs Temp 99 F 04/12/19 08:32 Pulse 99 04/12/19 08:32 Resp 18 04/12/19 08:32 BP 129/75 04/12/19 08:32 Pulse Ox 98 04/12/19 08:32 Eye Exam: Normal ENT: Positive: Hearing grossly normal Neck: Positive: Nontender Respiratory: Positive: Lungs clear Cardiovascular: Positive: RRR Musculoskeletal Exam: Other - Tender to palpation with spasm and bilateral low thoracic musculature. No significant tenderness to palpation in the lumbar area. Antalgic gait. Neurological Exam: Normal Neurological: Positive: Muscle Tone Normal Psychological Exam: Normal Skin Exam: Normal Procedures - Procedure Summary Procedure Summary: Trigger point injection thoracic musculature: The low thoracic and upper lumbar musculature was cleaned with alcohol. Is then injected with a total of 15 cc of 1% lidocaine with epinephrine and divided aliquots throughout the musculature. Spasm released and range of motion returned. This medication was massaged through the tissues. She tolerated this well without complication. Back Pain Course/Dx - Course Course Of Treatment: Muscular injury from twisting. Trigger point injection resolved her symptoms. Continue NSAID and add muscle relaxer. - Differential Dx/Diagnosis Differential Diagnosis/HQI/PQRI: Strain, Sprain Provider Diagnosis: Acute thoracic myofascial strain Discharge - Sign-Out/Discharge Documenting (check all that apply): Patient Departure All imaging exams completed and their final reports reviewed: No Studies - Discharge Plan Condition: Improved Disposition: HOME Prescriptions: Cyclobenzaprine TAB* [Flexeril 10 MG TAB*] 5 - 10 mg PO TID PRN #12 tab PRN Reason: muscle pain Patient Education Materials: Thoracic Back Strain (ED) Forms: *Work Release Referrals: Leny Gaxiola NP [Primary Care Provider] - Additional Instructions: Rest, ice, range of motion/stretching exercises. caretaker grounds may help. Follow up with your doctor with a call today. Return with increased pain, worse , new symptoms or other concerns. - Billing Disposition and Condition Condition: IMPROVED Disposition: Home
== END 2019-04-12 09:15 | disposition home or self-care (01) ==
LOC: UCEAST 08:16
DX: S29.012A Strain of muscle and tendon of back wall of thorax, initial encounter (principal); W18.40XA Slipping, tripping and stumbling without falling, unspecified, initial encounter; Y92.9 Unspecified place or not applicable; F17.210 Nicotine dependence, cigarettes, uncomplicated
CPT/HCPCS: 99212; G0463; J2001

== ENCOUNTER 2019-06-11 18:07 | Emergency (ER) | payer SELFPAY ==
[2019-06-11 18:24] VITALS: BP 136/86
--- NOTE | 2019-06-11 18:45 | UC ---
Neck Pain HPI - HPI Summary HPI Summary: 33 yo female with neck pain > one year no trauma limited ROM for the past week it has been causing a headache - History of Current Complaint Chief Complaint: UCGeneralIllness Stated Complaint: NECK PAIN Time Seen by Provider: 06/11/19 18:16 Hx Obtained From: Patient Hx Last Menstrual Period: 06/04/19 Onset/Duration Of Injury/Symptoms: Weeks - >52 Timing: Constant Severity: Moderate Pain Intensity: 7 Pain Scale Used: 0-10 Numeric Character: Sharp, Aching, Spasmotic, Burning Aggravating Factors: Movement Alleviating Factors: Massage Associated Signs & Symptoms: Positive: Negative - Allergies/Home Medications Allergies/Adverse Reactions: Allergies Allergy/AdvReac Type Severity Reaction Status Date / Time No Known Allergies Allergy Verified 06/11/19 18:25 Home Medications: Home Medications Hydrocodone/Acetaminophen [Vicodin 5-300 mg Tablet] 1 tab PO ONCE 06/11/19 [ History Confirmed 06/11/19] Ibuprofen 1 tab PO Q6H 06/11/19 [History Confirmed 06/11/19] PMH/Surg Hx/FS Hx/Imm Hx Previously Healthy: Yes - Surgical History Surgical History: Yes Surgery Procedure, Year, and Place: mastoiditis, L EAR DRAINAGE AGE 4 ;. C- SECTION ;. TONSILECTOMY ; - Family History Known Family History: Positive: None, Cardiac Disease, Hypertension, Diabetes, Other - lupus, cancer Negative: Respiratory Disease, Blood Disorder - Social History Alcohol Use: Rare Substance Use Type: None Smoking Status (MU): Heavy Every Day Tobacco Smoker Type: Cigarettes Amount Used/How Often: 1 PPD Length of Time of Smoking/Using Tobacco: 20 Years Have You Smoked in the Last Year: Yes When Did the Patient Quit Smoking/Using Tobacco: about a month, uses eCigs Household Exposure Type: Cigarettes - Immunization History Most Recent Influenza Vaccination: Not the 2016/2016 Season Review of Systems All Other Systems Reviewed And Are Negative: Yes Constitutional: Positive: Negative Skin: Positive: Negative Eyes: Positive: Negative ENT: Positive: Negative Respiratory: Positive: Negative Cardiovascular: Positive: Negative Gastrointestinal: Positive: Negative Genitourinary: Positive: Negative Motor: Positive: Negative Neurovascular: Positive: Negative Musculoskeletal: Positive: Arthralgia - neck Neurological: Positive: Headache Psychological: Positive: Negative Physical Exam Triage Information Reviewed: Yes Appearance: Well-Appearing, No Pain Distress Vital Signs: Initial Vital Signs Temp 98.3 F 06/11/19 18:20 Pulse 104 06/11/19 18:20 Resp 16 06/11/19 18:20 BP 136/86 06/11/19 18:20 Pulse Ox 100 06/11/19 18:20 Vital Signs Reviewed: Yes Eyes: Positive: Conjunctiva Clear ENT: Positive: Hearing grossly normal. Negative: Nasal congestion, Nasal drainage, Tonsillar swelling, Tonsillar exudate, Trismus, Muffled voice, Hoarse voice Dental Exam: Normal Neck: Positive: No Lymphadenopathy, Other: - Limited ROM, tender midline Respiratory: Positive: Lungs clear, Normal breath sounds, No respiratory distress, No accessory muscle use Cardiovascular: Positive: RRR Musculoskeletal: Positive: ROM Intact, No Edema Neurological Exam: Normal Neurological: Positive: Alert Psychological Exam: Normal Skin Exam: Normal - Additional Comments neck limited ROM except she has full extension Diagnostics - Radiology No standard instances Radiology Interpretation Completed By: Radiologist Summary of Radiographic Findings: loss of lordosis, I don't see an odontoid view Neck Pain Course/Dx - Course Course Of Treatment: pt needs to take her daughter to ER...I did not send her back for odontoid view - Differential Dx/Diagnosis Provider Diagnosis: Cervical muscle strain Discharge - Sign-Out/Discharge Documenting (check all that apply): Patient Departure All imaging exams completed and their final reports reviewed: No - Discharge Plan Condition: Stable Disposition: HOME Prescriptions: Cyclobenzaprine (NF) [Cyclobenzaprine 5 MG (NF)] 5 mg PO TID PRN #21 tab PRN Reason: Spasms - Neck Patient Education Materials: Cervical Strain (ED), Soft Cervical Collar (ED) Referrals: Leny Gaxiola NP [Primary Care Provider] - 1 Week Additional Instructions: continue ibuprofen - Billing Disposition and Condition Condition: STABLE Disposition: Home
--- NOTE | 2019-06-12 09:52 | UC ---
- Progress Note Progress Note: Radiologist interpretation from C-spine x-rays of 2018 comes back as no acute fracture or subluxation. Provider interpretation of the same date is the same therefore there is no discrepancy. Course/Dx - Diagnoses Provider Diagnoses: Cervical muscle strain Discharge - Sign-Out/Discharge Documenting (check all that apply): Patient Departure All imaging exams completed and their final reports reviewed: Yes - Discharge Plan Condition: Stable Disposition: HOME Prescriptions: Cyclobenzaprine (NF) [Cyclobenzaprine 5 MG (NF)] 5 mg PO TID PRN #21 tab PRN Reason: Spasms - Neck Patient Education Materials: Cervical Strain (ED), Soft Cervical Collar (ED) Referrals: Leny Gaxiola NP [Primary Care Provider] - 1 Week Additional Instructions: continue ibuprofen - Billing Disposition and Condition Condition: STABLE Disposition: Home
== END 2019-06-11 19:40 | disposition home or self-care (01) ==
LOC: UCCORT 18:07
DX: S16.1XXA Strain of muscle, fascia and tendon at neck level, initial encounter (principal); X58.XXXA Exposure to other specified factors, initial encounter; Y92.9 Unspecified place or not applicable; F17.210 Nicotine dependence, cigarettes, uncomplicated
CPT/HCPCS: 72050; 99212; G0463

== ENCOUNTER 2019-10-22 15:16 | Emergency (ER) | payer OTHER ==
[2019-10-22 15:43] VITALS: BP 150/104
--- NOTE | 2019-10-22 16:52 | UC ---
Back Pain HPI - HPI Summary HPI Summary: 34 year old female with PMH + for ADHD, on adderall, presents after mechnical fall yesterday. no head trauma, no LOC. no loss of bowel/ bladder function, no weakness, numbness, tinlging. + shooting pain down left leg from buttock occassionally. Patient states fell on left buttock, was ambulatory afterwards. Minimal improvement today. Decreased sleeping due to pain, finding comfortable position. + ambulatory with pain, L buttock. no fever, chills. no prior back problems/ complaints. - History of Current Complaint Chief Complaint: UCTrauma Stated Complaint: BACK PAIN Time Seen by Provider: 10/22/19 16:28 Hx Obtained From: Patient Hx Last Menstrual Period: 09/25 ?: No Onset/Duration: Sudden Onset, Lasting Days - 1 Timing: Constant Severity Initially: Severe Severity Currently: Severe Pain Intensity: 8 Pain Scale Used: 0-10 Numeric Back Pain: Is Discrete @ - lower back, L Aggravating Factor(s): Movement, Lifting, Bending, Walking Alleviating Factor(s): Rest Associated Signs And Symptoms: Positive: Pain with Weight Bearing. Negative: Swelling, Redness, Bruising, Fever, Weakness, Numbness, Tingling, Abdominal Pain , Bladder Incontinence, Bowel Incontinence - Allergies/Home Medications Allergies/Adverse Reactions: Allergies Allergy/AdvReac Type Severity Reaction Status Date / Time No Known Allergies Allergy Verified 10/22/19 15:43 Home Medications: Home Medications Ibuprofen 400 mg PO DAILY WITH MEAL 10/22/19 [History Confirmed 10/22/19] Naproxen [Naproxen 500 mg tab] 500 mg PO DAILY WITH MEAL 10/22/19 [History Confirmed 10/22/19] PMH/Surg Hx/FS Hx/Imm Hx Previously Healthy: Yes - Surgical History Surgical History: Yes Surgery Procedure, Year, and Place: mastoiditis, L EAR DRAINAGE AGE 4 ;. C- SECTION ;. TONSILECTOMY ; - Family History Known Family History: Positive: None, Cardiac Disease, Hypertension, Diabetes, Other - lupus, cancer Negative: Respiratory Disease, Blood Disorder - Social History Occupation: Unemployed Alcohol Use: None Substance Use Type: None Smoking Status (MU): Heavy Every Day Tobacco Smoker Type: Cigarettes Amount Used/How Often: 1 PPD Length of Time of Smoking/Using Tobacco: 20 Years Have You Smoked in the Last Year: Yes When Did the Patient Quit Smoking/Using Tobacco: about a month, uses eCigs Household Exposure Type: Cigarettes - Immunization History Most Recent Influenza Vaccination: Not the Season Review of Systems All Other Systems Reviewed And Are Negative: Yes Constitutional: Positive: Negative ENT: Positive: Negative Respiratory: Positive: Negative Genitourinary: Negative: Vaginal/Penile Burning, Vaginal/Penile Itching, Vaginal /Penile Discharge, Vaginal/Penile Pain, Vaginal/Penile Tenderness, Ulceration/ Lesion Musculoskeletal: Positive: Arthralgia, Decreased ROM, Myalgia Neurological: Positive: Negative Is Patient Immunocompromised?: No Physical Exam Triage Information Reviewed: Yes Appearance: Well-Appearing, Well-Nourished, Pain Distress - mild Vital Signs: Initial Vital Signs Temp 99.8 F 10/22/19 15:39 Pulse 98 10/22/19 15:39 Resp 18 10/22/19 15:39 BP 150/104 10/22/19 15:39 Pulse Ox 99 10/22/19 15:39 Eye Exam: Normal Eyes: Positive: Conjunctiva Clear ENT: Positive: Hearing grossly normal Neck: Positive: Supple. Negative: Nuchal Rigidity Musculoskeletal: Positive: Other: - non-tender to palpation over b/l hips, over thoracic, lumbar, sacral spine. mild TTP over L hip/ soft tissue. no ecchymosis seen. Neurological Exam: Normal Neurological: Positive: Other: - patellar reflexes 2+ b/l, + DF/PF against restistence = b/l, neg homans. PT 2+ b/l. full knee flex/ ext against resistence = b/l, hip abd/ add = 5/5 strength. Able to raise on toes, heels without problem. neg Rhomberg. Psychological Exam: Normal Skin Exam: Normal - no ecchymosis. Back Pain Course/Dx - Course Course Of Treatment: Lower back strain - No imaging needed due to no bone pains, fully ambulatory. - Naproxen- take twice daily x 2-3 days to decrease swelling, pain, then as needed - Flexeril as needed for spasms. DO NOT TAKE WITH ULTRAM - ULtram/ Tramadol as needed for severe pain - Increase fluid intake - Gentle stretching as tolerated - Go to ER with increased pain, loss of bowel/ bladder function, weakness, numbness/ tingling. - Differential Dx/Diagnosis Differential Diagnosis/HQI/PQRI: Fracture, Strain, Sprain Provider Diagnosis: Strain of fascia of lower back Discharge ED - Sign-Out/Discharge Documenting (check all that apply): Patient Departure All imaging exams completed and their final reports reviewed: No Studies - Discharge Plan Condition: Good Disposition: HOME Prescriptions: Naproxen [Naproxen 250 mg tab] 250 mg PO BID PRN #60 tablet PRN Reason: Pain - Mild traMADol TAB* [Ultram*] 25 mg PO Q6HR PRN #10 tab MDD 3 PRN Reason: Pain - Mild Patient Education Materials: Low Back Strain (ED), Lower Back Exercises (ED) Referrals: Leny Gaxiola NP [Primary Care Provider] - Additional Instructions: - Naproxen- take twice daily x 2-3 days to decrease swelling, pain, then as needed - Flexeril as needed for spasms. DO NOT TAKE WITH ULTRAM - ULtram/ Tramadol as needed for severe pain - Increase fluid intake - Gentle stretching as tolerated - Go to ER with increased pain, loss of bowel/ bladder function, weakness, numbness/ tingling. - Billing Disposition and Condition Condition: GOOD Disposition: Home - Attestation Statements Provider Attestation: Per institutional requirements, I have reviewed the chart, however, I was not consulted specifically or made aware of this patient by the midlevel provider. I did not personally evaluate, interact with , or disposition this patient.
== END 2019-10-22 16:53 | disposition home or self-care (01) ==
LOC: UCEAST 15:16
DX: S39.012A Strain of muscle, fascia and tendon of lower back, initial encounter (principal); F90.9 Attention-deficit hyperactivity disorder, unspecified type; F17.210 Nicotine dependence, cigarettes, uncomplicated; W19.XXXA Unspecified fall, initial encounter; Y92.9 Unspecified place or not applicable
CPT/HCPCS: 99212; G0463

== ENCOUNTER 2019-10-28 08:00 | Emergency (ER) | payer OTHER ==
[2019-10-28 08:08] VITALS: BP 127/85
--- NOTE | 2019-10-28 08:25 | UC ---
Respiratory Complaint HPI - HPI Summary HPI Summary: 34 yo smoker with cough and chest congestion x 3 days, without fever or chills. Feels short of breath at times. Last used albuterol yesterday. Does have a hx of pneumonia. - History of Current Complaint Chief Complaint: UCRespiratory Stated Complaint: COUGH, CHEST CONGESTION Time Seen by Provider: 10/28/19 08:13 Hx Obtained From: Patient Hx Last Menstrual Period: 10/15/19 Onset/Duration: Gradual Onset, Lasting Days - 3 Timing: Intermittent Episodes Severity Initially: Mild Severity Currently: Mild Pain Intensity: 4 Character: Cough: Productive Aggravating Factors: Exertion Alleviating Factors: Bronchodilator Associated Signs And Symptoms: Positive: Dyspnea, Wheezing, URI, Nasal Congestion - Risk Factors Pulmonary Embolism Risk Factors: Smoking Cardiac Risk Factors: Smoking Pseudomonas Risk Factors: Negative Tuberculosis Risk Factors: Negative - Allergies/Home Medications Allergies/Adverse Reactions: Allergies Allergy/AdvReac Type Severity Reaction Status Date / Time No Known Allergies Allergy Verified 10/28/19 08:08 PMH/Surg Hx/FS Hx/Imm Hx Previously Healthy: Yes Psychological History: Other - Attention deficit disorder - Surgical History Surgical History: Yes Surgery Procedure, Year, and Place: mastoiditis, L EAR DRAINAGE AGE 4 ;. C- SECTION ;. TONSILECTOMY ; - Family History Known Family History: Positive: None, Cardiac Disease, Hypertension, Diabetes, Other - lupus, cancer Negative: Respiratory Disease, Blood Disorder - Social History Occupation: Unemployed Lives: With Family Alcohol Use: None Substance Use Type: None Smoking Status (MU): Heavy Every Day Tobacco Smoker Type: Cigarettes Amount Used/How Often: 1 PPD Length of Time of Smoking/Using Tobacco: 20 Years Have You Smoked in the Last Year: Yes When Did the Patient Quit Smoking/Using Tobacco: about a month, uses e[employer]igs Household Exposure Type: Cigarettes - Immunization History Most Recent Influenza Vaccination: Not the 2016/2017 Season Review of Systems All Other Systems Reviewed And Are Negative: Yes Constitutional: Positive: Fatigue Skin: Positive: Negative Eyes: Positive: Negative ENT: Positive: Nasal Discharge Respiratory: Positive: Shortness Of Breath, Cough Cardiovascular: Negative: Chest Pain Gastrointestinal: Positive: Negative Motor: Positive: Negative Musculoskeletal: Positive: Myalgia - uses flexeril for neck spasms Neurological: Positive: Negative Psychological: Positive: Negative Is Patient Immunocompromised?: No Physical Exam Triage Information Reviewed: Yes Appearance: Well-Appearing, Ill-Appearing - looks mildly unwell Vital Signs: Initial Vital Signs Temp 97.8 F 10/28/19 08:03 Pulse 103 10/28/19 08:03 Resp 20 10/28/19 08:03 BP 127/85 10/28/19 08:03 Pulse Ox 99 10/28/19 08:03 Eye Exam: Normal ENT: Positive: Pharynx normal, TM dull - bilaterally Neck: Positive: Supple, Nontender, No Lymphadenopathy Respiratory: Positive: No respiratory distress, Wheezing - mildly prolonged expiration and wheeze. Cardiovascular: Positive: RRR, No Murmur Musculoskeletal Exam: Normal Neurological: Positive: Alert, Muscle Tone Normal Psychological Exam: Normal Skin Exam: Normal Respiratory Course/Dx - Course Course Of Treatment: Add prednisone for control of bronchospasm, continue symptomatic treatment with albuterol as needed. - Differential Dx/Diagnosis Differential Diagnosis/HQI/PQRI: Asthma, Bronchitis, Lower Resp Infection Provider Diagnosis: Bronchitis Discharge ED - Sign-Out/Discharge Documenting (check all that apply): Patient Departure All imaging exams completed and their final reports reviewed: No Studies - Discharge Plan Condition: Stable Disposition: HOME Prescriptions: Albuterol HFA INHALER* [Ventolin HFA Inhaler*] 2 puff INH Q6H PRN #1 mdi PRN Reason: Wheezing predniSONE [Prednisone 20 MG TAB] 40 mg PO DAILY #10 tablet Patient Education Materials: Acute Bronchitis (ED) Referrals: Leny Gaxiola NP [Primary Care Provider] - Additional Instructions: For viral bronchitis: continue use of albuterol up to 4 times per day. Take prednisone 40mg once daily with food for the next 5 days. Follow up if you develop fever or have increasing shortness of breath. Please make efforts to stop smoking. - Billing Disposition and Condition Condition: STABLE Disposition: Home
== END 2019-10-28 08:52 | disposition home or self-care (01) ==
LOC: UCEAST 08:00
DX: J40 Bronchitis, not specified as acute or chronic (principal); F17.210 Nicotine dependence, cigarettes, uncomplicated
CPT/HCPCS: 99212; G0463

== ENCOUNTER 2019-11-05 20:14 | Emergency (ER) | payer OTHER ==
[2019-11-05] MEDS ORDERED: Albuterol 2.5 MG/3 ML NEB.SOL* (0.083%) INH ONE (20:17)
--- NOTE | 2019-11-05 20:20 | UC ---
Respiratory Complaint HPI - HPI Summary HPI Summary: 34-year-old female presenting with worsening cough after being diagnosed with acute bronchitis 8 days ago. Patient states she was given albuterol inhaler and prednisone which did not provide relief. Patient notes burning and rib pain with cough now. Cough nonproductive. Notes shortness of breath and wheezing. Notes chills and sweats. Unsure of fevers. Denies nausea and vomiting. Patient is a heavy every day smoker. States she used mother's nebulizer with temporary relief. - History of Current Complaint Stated Complaint: COUGH, WHEEZING Hx Obtained From: Patient Hx Last Menstrual Period: 10/15/19 Onset/Duration: Gradual Onset, Lasting Days - Allergies/Home Medications Allergies/Adverse Reactions: Allergies Allergy/AdvReac Type Severity Reaction Status Date / Time No Known Allergies Allergy Verified 11/05/19 20:24 Home Medications: Home Medications guaiFENesin 100 mg/5 ml LIQ [Robitussin 100 mg/5ml LIQ] PRN 11/05/19 [History] PMH/Surg Hx/FS Hx/Imm Hx - Surgical History Surgical History: Yes Surgery Procedure, Year, and Place: mastoiditis, L EAR DRAINAGE AGE 4 ;. C- SECTION ;. TONSILECTOMY ; - Family History Known Family History: Positive: None, Cardiac Disease, Hypertension, Diabetes, Other - lupus, cancer Negative: Respiratory Disease, Blood Disorder - Social History Alcohol Use: None Substance Use Type: None Smoking Status (MU): Heavy Every Day Tobacco Smoker Type: Cigarettes Amount Used/How Often: 1 PPD Length of Time of Smoking/Using Tobacco: 20 Years Have You Smoked in the Last Year: Yes When Did the Patient Quit Smoking/Using Tobacco: about a month, uses eCigs Household Exposure Type: Cigarettes - Immunization History Most Recent Influenza Vaccination: Not the 2016/2016 Season Review of Systems All Other Systems Reviewed And Are Negative: Yes Constitutional: Positive: Chills. Negative: Fever ENT: Positive: Sore Throat. Negative: Ear Ache, Sinus Congestion Respiratory: Positive: Shortness Of Breath, Cough, Other - wheezing Cardiovascular: Positive: Negative Gastrointestinal: Positive: Negative. Negative: Vomiting, Nausea Musculoskeletal: Positive: Myalgia Neurological: Positive: Negative Physical Exam Triage Information Reviewed: Yes Appearance: No Pain Distress, Well-Nourished, Other: - persistent coughing Vital Signs: Vital Signs (72 hours) 11/05/19 20:20 Temperature 97.7 F Pulse Rate 125 Respiratory 20 Rate Blood Pressure 158/101 (mmHg) O2 Sat by Pulse 99 Oximetry Vital Signs Reviewed: Yes Eyes: Positive: Conjunctiva Clear ENT: Positive: Hearing grossly normal, Pharyngeal erythema, TMs normal, Uvula midline. Negative: Nasal congestion, Nasal drainage Neck exam: Normal Neck: Positive: Supple, Nontender, No Lymphadenopathy Respiratory: Positive: No respiratory distress, No accessory muscle use, Wheezing - diffuse expiratory wheezing. Negative: Crackles, Rhonchi Cardiovascular Exam: Other - regular rhythm Cardiovascular: Positive: Tachycardia Neurological: Positive: Alert Psychological: Positive: Age Appropriate Behavior Diagnostics - Radiology chest Radiology Interpretation Completed By: ED Physician Summary of Radiographic Findings: suspected infiltrate noted on CXR Respiratory Course/Dx - Course Course Of Treatment: Patient presenting with worsening cough x8 days despite albuterol and prednisone treatment on 10/28 for bronchitis. Patient received neb treatment here. I treated with azithromycin and augmentin combination based on suspected pneumonia on CXR and given smoking history. Also provided patient with prednisone course. Also instructed to continue with symptomatic treatment, including cough medication and albuterol inhaler as needed.Instructed patient to follow up with pcp if symptoms persist or to go to ED with any new or worsening symptoms. Patient voiced understanding and agreed with treatment plan. - Differential Dx/Diagnosis Differential Diagnosis/HQI/PQRI: Other Provider Diagnosis: Acute bronchospasm, Pneumonia Discharge ED - Sign-Out/Discharge Documenting (check all that apply): Patient Departure All imaging exams completed and their final reports reviewed: No - Discharge Plan Condition: Stable Disposition: HOME Prescriptions: Amoxicillin/Clavulanate TAB* [Augmentin TAB 500 mg*] 500 mg PO TID #21 tab Azithromycin TAB* [Zithromax TAB (Z-OMAIRA) 250 mg #6 tabs] 250 mg PO DAILY #4 tab GuaiFENesin DM 100 mg/10 mg [Robitussin DM 100 mg/10 mg in 5 ml] 5 ml PO Q4H PRN #180 ml PRN Reason: Cough predniSONE TAB* [Deltasone 20 MG TAB*] 40 mg PO DAILY #10 tab Patient Education Materials: Pneumonia (ED) Referrals: Leny Gaxiola NP [Primary Care Provider] - If Needed Additional Instructions: As discussed, you are being treated for suspected pneumonia. Your radiographs were read by the provider who treated you tonight. The final report is obtained in the morning and you will be notified with any results warranting change in treatment. Take azithromycin, augmentin, and prednisone as prescribed. Continue use of your inhaler as needed for your shortness of breath and wheezing. You may take Robitussin DM or Delsym DM for cough relief. You may take ibuprofen or tylenol as directed for fever and pain relief. Get plenty of rest and increase your fluid intake. Refrain from smoking while symptoms are present. A humidifier at night may help alleviate symptoms as well. Follow up with your primary care doctor if your symptoms worsen or do not resolve within 5-7 days. Go to the emergency room with any new or worsening symptoms. - Billing Disposition and Condition Condition: STABLE Disposition: Home
[2019-11-05 20:24] VITALS: BP 158/101
[2019-11-05] MEDS ORDERED: Azithromycin TAB* 250 MG PO ONE (21:06)
[2019-11-05] MEDS ORDERED: Amoxicillin/Clavulanate TAB* 875 MG PO ONE (21:07)
--- NOTE | 2019-11-06 19:50 | UC ---
- Progress Note Progress Note: wet read correct Course/Dx - Diagnoses Provider Diagnoses: Acute bronchospasm, Pneumonia Discharge ED - Sign-Out/Discharge Documenting (check all that apply): Post-Discharge Follow Up All imaging exams completed and their final reports reviewed: Yes - Discharge Plan Condition: Stable Disposition: HOME Prescriptions: Amoxicillin/Clavulanate TAB* [Augmentin TAB 500 mg*] 500 mg PO TID #21 tab Azithromycin TAB* [Zithromax TAB (Z-OMAIRA) 250 mg #6 tabs] 250 mg PO DAILY #4 tab GuaiFENesin DM 100 mg/10 mg [Robitussin DM 100 mg/10 mg in 5 ml] 5 ml PO Q4H PRN #180 ml PRN Reason: Cough predniSONE 20 mg TAB [Deltasone 20 MG TAB*] 40 mg PO DAILY #10 tab Patient Education Materials: Pneumonia (ED) Referrals: Leny Gaxiola NP [Primary Care Provider] - If Needed Additional Instructions: As discussed, you are being treated for suspected pneumonia. Your radiographs were read by the provider who treated you tonight. The final report is obtained in the morning and you will be notified with any results warranting change in treatment. Take azithromycin, augmentin, and prednisone as prescribed. Continue use of your inhaler as needed for your shortness of breath and wheezing. You may take Robitussin DM or Delsym DM for cough relief. You may take ibuprofen or tylenol as directed for fever and pain relief. Get plenty of rest and increase your fluid intake. Refrain from smoking while symptoms are present. A humidifier at night may help alleviate symptoms as well. Follow up with your primary care doctor if your symptoms worsen or do not resolve within 5-7 days. Go to the emergency room with any new or worsening symptoms. - Billing Disposition and Condition Condition: STABLE Disposition: Home
== END 2019-11-05 21:27 | disposition home or self-care (01) ==
LOC: UCEAST 20:14
DX: J18.9 Pneumonia, unspecified organism (principal); J98.01 Acute bronchospasm; F17.210 Nicotine dependence, cigarettes, uncomplicated
CPT/HCPCS: 71046; 99213; A9270-GY; G0463; J7512

== ENCOUNTER 2020-12-02 05:54 | Inpatient (IN) ==
[2020-12-02] MEDS ORDERED: ceFOXitin 2 GM IVPREMIX 2 GM/50 ML BAG IVPB ONE (06:00)
[2020-12-02] MEDS ORDERED: Lactated Ringers 1000 ml BAG 1,000 ML IV SCH ×2 (06:00→10:00)
[2020-12-02] MEDS ORDERED: Sodium Citrate/Citric Acid LIQ 15 ML UDC PO ONE (06:00)
[2020-12-02] MEDS ORDERED: Buffered Lidocaine 1% SYRIN 1 ml INTRADERM ONE (06:00)
[2020-12-02] MEDS ORDERED: Lactated Ringers 1000 ml BAG 1,000 ML IV ONE (06:00)
[2020-12-02 07:11] LABS: Urine Benzodiazepine Screen None Detected (None Detect); Urine Cannabinoids Screen None Detected (None Detect); Urine Opiates Screen None Detected (None Detect)
[2020-12-02] MEDS ORDERED: Ondansetron 4 mg VIAL 2 MG/ML 2 ml VIAL ONE (07:58)
[2020-12-02] MEDS ORDERED: Phenylephrine 40 mcg/mL 10mL (400mcg) SYRINGE ONE (07:59)
[2020-12-02] MEDS ORDERED: Morphine PF AMP (0.5MG/ML) 5 MG/10 ML AMP ONE (08:07)
[2020-12-02] MEDS ORDERED: fentaNYL 100 mcg/2 ml 50 MCG/ML VIAL ONE (08:07)
[2020-12-02] MEDS ORDERED: Oxytocin 10 UNITS/ML 1 ML VIAL ONE (08:19)
[2020-12-02] MEDS ORDERED: Naloxone 0.4 mg VIAL 0.4 mg/ml 1 ml VIAL IV PRN ×2 (08:33→08:34)
[2020-12-02] MEDS ORDERED: Ondansetron 4 mg VIAL 2 MG/ML 2 ml VIAL IV PRN ×2 (08:33→08:34)
[2020-12-02] MEDS ORDERED: HYDROmorphone 1 MG/1 ML SYRINGE IV PRN (08:34)
[2020-12-02] MEDS ORDERED: fentaNYL 100 mcg/2 ml 50 MCG/ML VIAL IV PRN (08:34)
[2020-12-02] MEDS ORDERED: Acetaminophen IV 1 GM/100ML 1,000 MG/100 ML VIAL IVPB ONE (08:34)
[2020-12-02] MEDS ORDERED: Glycerin ADULT 2.4 gm SUPP PR PRN (09:33)
[2020-12-02] MEDS ORDERED: Witch Hazel PAD JAR TOPICAL PRN (09:33)
[2020-12-02] MEDS ORDERED: Dibucaine 1% OINT 28.35 GM TUBE PR PRN (09:33)
[2020-12-03 06:37] LABS: Hematocrit 32 % (35-47); Hemoglobin 10.8 g/dL (12.0-16.0); Mean Corpuscular HGB Conc 34 g/dL (31-36); Mean Corpuscular Hemoglobin 28 pg (27-31); Mean Corpuscular Volume 83 fL (80-97); Mean Platelet Volume 8.9 fL (7.4-10.4); Platelet Count 189 10^3/uL (150-450); Red Blood Count 3.89 10^6 /uL (3.70-4.87); Red Cell Distribution Width 15 % (10-15)
[2020-12-03 06:59] LABS: ABS Basophils 0.1 10^3/ul (0-0.2); ABS Eosinophils 0.1 10^3/ul (0-0.6); ABS Lymphocytes 2.2 10^3/ul (1.0-4.8); ABS Monocytes 2.4 10^3/ul (0-0.8); ABS Neutrophils 11.3 10^3/ul (1.5-7.7); Eosinophil % 0.7 %; Lymphocyte % 13.7 %
[2020-12-04 07:46] VITALS: BP 130/88
== END 2020-12-04 10:30 | disposition home or self-care (01) | DRG 540 ==
LOC: MCHOB 05:54
PROVIDERS: ADMIT Obstetrics & Gynecology; ATTEND Obstetrics & Gynecology